=== PATIENT | female | born 1950 | race African-American/Black ===

== ENCOUNTER 2016-12-03 15:13 | Emergency (ER) | payer OTHER ==
[2016-12-03 15:34] VITALS: BMI 27.3
[2016-12-03] MEDS ORDERED: SODIUM CHLORIDE 1,000 ML IV STA (15:46)
[2016-12-03 16:17] LABS: BASOPHIL 0.2 % (0-2.0); EOSINOPHIL 0.1 % (0-4.5); MCH 29.8 pg (25.7-33.7); MEAN CELL VOLUME 90.4 fl (80-96); NEUTROPHILS 72.5 % (42.8-82.8); PLATELET COUNT 110 K/MM3 (134-434); WHITE BLOOD COUNT 6.3 K/mm3 (4.0-10.0)
[2016-12-03 16:30] LABS: INR 1.21 (0.82-1.09); PROTHROMBIN TIME (PATIENT) 13.4 SEC (9.98-11.88)
[2016-12-03 16:32] LABS: ACTIVATED PTT 31.2 SECONDS (26.9-34.4)
--- NOTE | 2016-12-03 16:32 | PDOC ---
History of Present Illness - General History Source: Long-Term Records Exam Limitations: Dementia <Lucina Gray - Last Filed: 12/03/16 18:27> <Maylin Stafford - Last Filed: 12/06/16 08:43> - General Chief Complaint: SIRS, Suspected/Possible Stated Complaint: FEVER Time Seen by Provider: 12/03/16 15:29 Past History - Past Medical History Dementia: Yes Dialysis: Yes (gerd) GI Disorders: Yes (constipation) Psychiatric Problems: Yes (schizophrenia, psychosis) Seizures: Yes (schiophrenia) - Immunization History Immunization Up to Date: No - Psycho/Social/Smoking Cessation Hx Anxiety: No Suicidal Ideation: No Smoking History: Unknown if ever smoked Have you smoked in the past 12 months: No Number of Cigarettes Smoked Daily: 20 Information on smoking cessation initiated: No 'Breaking Loose' booklet given: 07/31/14 Hx Alcohol Use: No Drug/Substance Use Hx: No Substance Use Type: None <Lucina Gray - Last Filed: 12/03/16 18:27> <Maylin Stafford - Last Filed: 12/06/16 08:43> - Past Medical History Allergies/Adverse Reactions: Allergies Allergy/AdvReac Type Severity Reaction Status Date / Time trazodone Allergy Mild Verified 12/03/16 15:26 strawberry Allergy Verified 12/03/16 15:26 Home Medications: Ambulatory Orders Acetaminophen [Tylenol] 650 mg PO QID 12/03/16 Benztropine Mesylate [Cogentin -] 0.5 mg PO BID 12/03/16 Divalproex *ER* [Depakote *ER* -] 500 mg PO BID 12/03/16 Hypromellose 0.5% Opth Soln [Artificial Tears] 1 drop BID 12/03/16 Ibuprofen [Motrin -] 400 mg PO TID 12/03/16 Magnesium Hydroxide [Milk of Magnesia] 30 ml PO DAILY PRN 12/03/16 Risperidone Microspheres [Risperdal Consta] 50 mg IM DAILY 12/03/16 Risperidone [Risperdal] 1 mg PO BID 12/03/16 Sennosides [Senna] 2 tab PO HS 12/03/16 Review of Systems - Review of Systems Able to Perform ROS?: No (2/2 dementia) <Lucina Gray - Last Filed: 12/03/16 18:27> *Physical Exam - Vital Signs Last Vital Signs Temp Pulse Resp BP Pulse Ox 101.9 F H 105 H 20 112/69 95 12/03/16 15:26 12/03/16 15:26 12/03/16 15:26 12/03/16 15:26 12/03/16 15:26 - Physical Exam General Appearance: Yes: Appropriately Dressed. No: Apparent Distress HEENT: positive: Normal Voice Neck: positive: Supple Respiratory/Chest: positive: Lungs Clear, Normal Breath Sounds. negative: Respiratory Distress Cardiovascular: positive: S1, S2, Tachycardia Gastrointestinal/Abdominal: positive: Soft. negative: Tender Musculoskeletal: negative: CVA Tenderness Extremity: positive: Normal Inspection Integumentary: positive: Dry, Warm, Other (no sacral bed sores) Neurologic: positive: Alert, Normal Mood/Affect <Lucina Gray - Last Filed: 12/03/16 18:27> - Vital Signs Last Vital Signs Temp Pulse Resp BP Pulse Ox 99.9 F H 85 20 116/80 100 12/03/16 18:05 12/03/16 20:12 12/03/16 20:12 12/03/16 20:12 12/03/16 20:12 <Maylin Stafford - Last Filed: 12/06/16 08:43> ED Treatment Course - LABORATORY CBC & Chemistry Diagram: 12/03/16 15:55 12/03/16 15:55 - ADDITIONAL ORDERS Additional order review: Laboratory Results 12/03/16 15:25 POC Glucometer 120.26191 12/03/16 12/03/16 15:55 15:25 RBC 4.28 MCV 90.4 MCHC 33.0 RDW 16.0 H MPV 11.0 D Neutrophils % 72.5 D Lymphocytes % 18.8 D Monocytes % 8.4 Eosinophils % 0.1 D Basophils % 0.2 POC Glucometer 120.33476 - RADIOLOGY Radiology Studies Ordered: Category Date Time Status CHEST X-RAY PORTABLE* [RAD] Stat Radiology 12/03/16 15:46 Completed <Lucina Gray - Last Filed: 12/03/16 18:27> - LABORATORY CBC & Chemistry Diagram: 12/03/16 15:55 12/03/16 15:55 - ADDITIONAL ORDERS Additional order review: 12/03/16 15:55 Blood Culture - Preliminary Blood - Peripheral Venous NO GROWTH OBTAINED AFTER 48 HOURS, INCUBATION TO CONTINUE FOR 3 DAYS. 12/03/16 15:55 Blood Culture - Preliminary Blood - Peripheral Venous NO GROWTH OBTAINED AFTER 48 HOURS, INCUBATION TO CONTINUE FOR 3 DAYS. 12/03/16 15:46 Urine Culture - Final Urine - Urine Hernandez NO GROWTH OBTAINED 12/03/16 12/03/16 15:55 15:25 RBC 4.28 MCV 90.4 MCHC 33.0 RDW 16.0 H MPV 11.0 D Neutrophils % 72.5 D Lymphocytes % 18.8 D Monocytes % 8.4 Eosinophils % 0.1 D Basophils % 0.2 POC Glucometer 120.66371 - Medications Given in the ED: ED Medications Discontinued Medications Generic Name Dose Route Start Last Admin Trade Name Freq PRN Reason Stop Dose Admin Acetaminophen 650 mg 12/03/16 17:05 12/03/16 17:15 Tylenol - PO 12/03/16 17:06 650 mg ONCE ONE Administration Sodium Chloride 1,000 mls @ 1,000 mls/hr 12/03/16 15:46 12/03/16 16:26 Normal Saline - IV 12/03/16 16:45 1,000 mls/hr ASDIR STA Administration <Maylin Stafford - Last Filed: 12/06/16 08:43> Medical Decision Making - Medical Decision Making 12/03/16 16:29 66-year-old female resident at [facility] with history of dementia, schizophrenia, seizure disorder, ventral hernia, COPD, pleural effusion status post thoracentesis, pneumonia, sepsis, sent from intermediate for fever of 103 F today. Patient unable to give much hx but states she feels well See exam R/o sepsis Source unclear at this time Low grade temp in ED w/ mild tachycardia Rest of exam unremarkable -tylenol -IVF -labs/molina-x/cxr -anticipate admission 12/03/16 17:07 12/03/16 17:39 12/03/16 18:27 Workup negative in ED. No obvious signs of infection at this time. Vitals improved w/ meds. Fever possibly viral in etiology. Will discharge back to intermediate w/ copy of labs 12/03/16 18:37 <Lucina Gray Last Filed: 12/03/16 18:27> *DC/Admit/Observation/Transfer <Lucina Gray - Last Filed: 12/03/16 18:27> - Attestations Physician Attestion: I reviewed the case with the mid-level practitioner and agree with the mid- level practitioner's assessment, diagnosis and disposition. <Maylin Stafford - Last Filed: 12/06/16 08:43> Diagnosis at time of Disposition: Fever Qualifiers: Fever type: unspecified Qualified Code(s): R50.9 - Fever, unspecified - Discharge Dispostion [facility] Condition at time of disposition: Improved - Patient Instructions Printed Discharge Instructions: DI for Fever (Symptom) -- Adult Additional Instructions: The source of your fever is unclear at this time as your labs including lactic acid, CBC, chemistry, urine and chest x-ray were all normal. It is possible that the source is viral. Maintain adequate hydration and take Tylenol or Motrin as needed for fever. Return to the ER for worsening of symptoms. Follow-up with your PMD
[2016-12-03 16:35] LABS: ANION GAP 8 (8-16); BILIRUBIN,TOTAL 0.4 mg/dL (0.2-1.0); CALCIUM 9.1 mg/dL (8.5-10.1); CO2 28 mmol/L (21-32); COCKROFT - GAULT 85.9945; CREATININE 0.7 mg/dL (0.55-1.02); GLUCOSE,RANDOM 99 mg/dL (74-106); SGOT/AST 19 U/L (15-37); SGPT/ALT 15 U/L (12-78); TOT PROT 6.7 g/dl (6.4-8.2)
[2016-12-03 16:36] LABS: ALK PHOS 43 U/L (45-117); TROPONIN I < 0.02 ng/ml (0.00-0.05)
[2016-12-03] MEDS ORDERED: ACETAMINOPHEN 325 MG TABLET (FP) PO ONE (17:05)
[2016-12-03] MEDS ORDERED: ACETAMINOPHEN 325 MG TABLET (FP) ONE (17:13)
[2016-12-03 18:05] VITALS: TEMP 99.9
[2016-12-03 18:11] LABS: URINE APPEARANCE CLEAR; URINE BILIRUBIN NEGATIVE (NEGATIVE); URINE BLOOD NEGATIVE (NEGATIVE); URINE COLOR LTYELLOW; URINE GLUCOSE (UA) NEGATIVE (NEGATIVE); URINE KETONE NEGATIVE (NEGATIVE); URINE LEUK ESTERASE NEGATIVE (NEGATIVE); URINE NITRITE NEGATIVE (NEGATIVE); URINE PROTEIN NEGATIVE (NEGATIVE); URINE UROBILINOGEN NEGATIVE E.U./dl (0.2-1.0)
[2016-12-03 18:35] LABS: VENOUS BLOOD GAS HCO3 27.5 meq/L (19-25); VENOUS PH 7.41 (7.32-7.42)
[2016-12-03 20:12] VITALS: BP 116/80; PULSE 85
--- NOTE | 2016-12-04 15:34 | EKG ---
Test Reason : Blood Pressure : / mmHG Vent. Rate : 088 BPM Atrial Rate : 088 BPM P-R Int : 150 ms QRS Dur : 066 ms QT Int : 364 ms P-R-T Axes : 075 -33 057 degrees QTc Int : 440 ms NORMAL SINUS RHYTHM POSSIBLE LEFT ATRIAL ENLARGEMENT LEFT AXIS DEVIATION POOR R WAVE PROGRESSION ABNORMAL ECG WHEN COMPARED WITH ECG OF 30-JUL-2014 23:13, QUESTIONABLE CHANGE IN INITIAL FORCES OF SEPTAL LEADS CLINICAL CORRELATION IS RECOMMENDED Confirmed by MERLINE MCFADDEN, SHERITA ([id number]) on 12/04/2016 3:33:30 PM Referred By: Confirmed By:SHERITA RICK MD
== END 2016-12-03 20:13 ==
LOC: JER 15:13
PROC: 3E0337Z Introduction of Electrolytic and Water Balance Substance into Peripheral Vein, Percutaneous Approach (ICD-10-PCS; principal; 2016-12-03)
DX: R50.9 Fever, unspecified (principal); F03.90 Unspecified dementia, unspecified severity, without behavioral disturbance, psychotic disturbance, mood disturbance, and anxiety; K21.9 Gastro-esophageal reflux disease without esophagitis; F20.9 Schizophrenia, unspecified; G40.909 Epilepsy, unspecified, not intractable, without status epilepticus; J44.9 Chronic obstructive pulmonary disease, unspecified
CPT/HCPCS: 36415; 71010-TC; 80053; 81003; 82550; 82803; 83605; 84484; 85025; 85610; 85730; 86850; 86900; 86901; 87040; 87086; 93005; 93010; 99284-25

== ENCOUNTER 2017-04-26 09:23 | Inpatient (IN) | payer OTHER ==
--- NOTE | 2017-04-26 09:33 | PDOC ---
History of Present Illness - General Chief Complaint: Nausea/Vomiting Stated Complaint: Nausea/Vomiting Time Seen by Provider: 04/26/17 09:27 - History of Present Illness Initial Comments: 04/26/17 09:33 Portions of history obtained from NIDHI Durham, @ [facility] and EMR Patient is a 66 y.o. female with a PMH of Dementia, Schizophrenia, Seizure Disoder, Ventral Hernia, COPD, Pleural Effusion, Breast CA (s/p lumpectomy) who presents to our ED via EMS from [facility] for a c/o of fever (101), tachycardia and a single episode of non-bloody emesis this a.m. On presentation patient repeatedly states "it hurts" but is unable to provide any further history. Past History - Past Medical History Allergies/Adverse Reactions: Allergies Allergy/AdvReac Type Severity Reaction Status Date / Time trazodone Allergy Mild Verified 04/26/17 09:32 chlorpromazine Allergy Verified 04/26/17 09:33 strawberry Allergy Verified 04/26/17 09:32 tomatoes Allergy Uncoded 04/26/17 09:33 Home Medications: Ambulatory Orders Acetaminophen [Tylenol] 650 mg PO QID 12/03/16 Benztropine Mesylate [Cogentin -] 0.5 mg PO BID 12/03/16 Divalproex *ER* [Depakote *ER* -] 500 mg PO BID 12/03/16 Hypromellose 0.5% Opth Soln [Artificial Tears] 1 drop BID 12/03/16 Ibuprofen [Motrin -] 200 mg PO TID 12/03/16 Magnesium Hydroxide [Milk of Magnesia] 30 ml PO DAILY PRN 12/03/16 Risperidone Microspheres [Risperdal Consta] 50 mg IM DAILY 12/03/16 Risperidone [Risperdal] 1 mg PO BID 12/03/16 Sennosides [Senna] 2 tab PO HS 12/03/16 Sodium Phosphate/Na Biphos [Fleet Adult Rectal Enema -] 118 ml RC PRN 04/26/17 Dementia: Yes Dialysis: Yes (gerd) GI Disorders: Yes (constipation) Psychiatric Problems: Yes (schizophrenia, psychosis) Seizures: Yes (schiophrenia) - Immunization History Immunization Up to Date: No - Suicide/Smoking/Psychosocial Hx Smoking History: Unknown if ever smoked Have you smoked in the past 12 months: No Number of Cigarettes Smoked Daily: 20 'Breaking Loose' booklet given: 07/31/14 Hx Alcohol Use: No Drug/Substance Use Hx: No Substance Use Type: None Review of Systems - Review of Systems Able to Perform ROS?: No *Physical Exam - Physical Exam General Appearance: Yes: Nourished HEENT: positive: LAURA Respiratory/Chest: positive: Lungs Clear Cardiovascular: positive: S1, S2 Gastrointestinal/Abdominal: positive: Normal Bowel Sounds, Soft, Hernia (40 cm circumferential, non-reducible ventral supraumbilical hernia) Extremity: positive: Normal Capillary Refill Neurologic: positive: Alert, Respond to painful stimul, Responsive, Confused. negative: Fully Oriented ED Treatment Course - LABORATORY CBC & Chemistry Diagram: 04/26/17 10:00 04/26/17 10:00 Medical Decision Making - Medical Decision Making 04/26/17 09:40 Patient is a 66 y.o. female who presents from [facility] following w / c/o of fever, tachycardia and 1 episode of non-bloody emesis. On PE patient is tachycardic, hypotensive (80's/60's @ presentation), and hypoxic (88% on 2 L NC) @ RR 24. SIRS 2/4 with suspected source as UTI as integumentary intact on PE. PLAN: 1. Sepsis work-up + 2L IV NS Planned disposition is likely admission 04/26/17 11:30 Lactic Acid 2.4 -- patient already recieving IV NS, will order repeat Lactic Acid in 2 hours; patient given Tylenol (1000 mg) @ [facility], additional 1000 mg IV administered + broad spectrum abx Vanc/Zoysn. Patient remains afebrile; wet read of CXR shows possible B/L pulmonary atelectasis changes + possible pleural effuson --> possible source of fever 04/26/17 12:13 Repeat VS - patient afebrile, resolved tachycardia and hypotension; repeat Lactic Acid 2.0; CXR report shows new R atelectasis; As patient now hemodynamically stable and afebrile patient admitted for further evaluation to inpatient medicine floor, Med/Surg as per Dr. Nilda Landon. *DC/Admit/Observation/Transfer Diagnosis at time of Disposition: Sepsis - Discharge Dispostion Condition at time of disposition: Fair Admit: Yes
[2017-04-26 09:46] VITALS: BMI 26.6
[2017-04-26] MEDS ORDERED: SODIUM CHLORIDE 0.9% 1000 ML INFUS.BAG IV ONE (10:14)
[2017-04-26 10:16] LABS: MCH 29.8 pg (25.7-33.7); MCHC 33.5 g/dl (32.0-36.0); MEAN CELL VOLUME 88.9 fl (80-96); MEAN PLT VOLUME 10.3 fl (7.5-11.1); PLATELET COUNT 106 K/MM3 (134-434); RDW 14.9 % (11.6-15.6); WHITE BLOOD COUNT 3.7 K/mm3 (4.0-10.0)
[2017-04-26] MEDS ORDERED: ACETAMINOPHEN INJECTION 100 ML IVPB ONE (10:31)
[2017-04-26] MEDS ORDERED: VANCOMYCIN 1,000 MG in DEXTROSE 5%-WATER - 250 ML IVPB ONE (10:35)
[2017-04-26] MEDS ORDERED: ACETAMINOPHEN 1000 MG/100 ML VIAL (NON FORMULARY) IVPB ONE (10:35)
[2017-04-26 10:36] LABS: URINE APPEARANCE CLEAR; URINE BILIRUBIN NEGATIVE (NEGATIVE); URINE BLOOD NEGATIVE (NEGATIVE); URINE COLOR DKYELLOW; URINE GLUCOSE (UA) NEGATIVE (NEGATIVE); URINE KETONE TRACE (NEGATIVE); URINE NITRITE NEGATIVE (NEGATIVE); URINE PROTEIN NEGATIVE (NEGATIVE)
[2017-04-26] MEDS ORDERED: PIPERACILLIN/TAZOB 4.5 GM/100 ML PREMIX BAG IVPB ONE (10:36)
[2017-04-26 10:37] LABS: INR 1.26 (0.82-1.09); PROTHROMBIN TIME (PATIENT) 14.2 SEC (9.98-11.88)
[2017-04-26 10:40] LABS: ACTIVATED PTT 29.8 SECONDS (26.9-34.4)
[2017-04-26 10:50] LABS: ALBUMIN 2.9 g/dl (3.4-5.0); ANION GAP 11 (8-16); BILIRUBIN,TOTAL 0.6 mg/dL (0.2-1.0); CO2 24 mmol/L (21-32); CREATININE 0.7 mg/dL (0.55-1.02); GLUCOSE,RANDOM 67 mg/dL (74-106); SGPT/ALT 17 U/L (12-78); TOT PROT 6.7 g/dl (6.4-8.2)
--- NOTE | 2017-04-26 10:51 | PDOC ---
Attending Attestation - Resident Resident Name: LeannaMarita - ED Attending Attestation I have performed the following: I have examined & evaluated the patient, The case was reviewed & discussed with the resident, I agree w/resident's findings & plan, Exceptions are as noted - HPI HPI: 04/26/17 10:47 66-year-old female from skilled nursing with nausea/vomiting/fever. Patient has COPD, not O2 dependent at baseline. - Physicial Exam PE: 04/26/17 10:48 Afebrile, tachycardia, relative hypoxia with O2 sat 87% on room air, improves to 96% on 2 L. Alert and moaning Airway patent Course breath sounds Large chronic ventral hernia which is soft, positive bowel sounds No focal neuro deficit - Critical Care Time Total Critical Care Time: 60 Critical Care Statement: The care of this patient involved high complexity decision making to prevent further life threatening deterioration of the patient 's condition and/or to evaluate & treat vital organ system(s) failure or risk of failure. - Medical Decision Making 04/26/17 10:50 66-year-old female from skilled nursing with sepsis, initially hypotensive but responded to fluids initially. Question source, possible pneumonia given her new O2 requirements. Sepsis protocol initiated Antipyretics, broad-spectrum antibiotics for healthcare associated infections IV fluid resuscitation Chest x-ray Admission, possible ICU. 04/26/17 11:41 Vitals improved after IVF boluses. lactate 2.2, UA clear. Will proceed with admission for severe sepsis.
--- NOTE | 2017-04-26 10:52 | EKG ---
Test Reason : Blood Pressure : / mmHG Vent. Rate : 110 BPM Atrial Rate : 110 BPM P-R Int : 140 ms QRS Dur : 062 ms QT Int : 336 ms P-R-T Axes : 074 -38 080 degrees QTc Int : 454 ms SINUS TACHYCARDIA POSSIBLE LEFT ATRIAL ENLARGEMENT LEFT AXIS DEVIATION SEPTAL INFARCT (CITED ON OR BEFORE 26-APR-2017) ABNORMAL ECG WHEN COMPARED WITH ECG OF 03-DEC-2016 16:40, QUESTIONABLE CHANGE IN INITIAL FORCES OF SEPTAL LEADS REPEAT INDICATED Confirmed by DIONISIO MALIN MD ([id number]) on 04/26/2017 10:52:32 AM Referred By: Confirmed By:DIONISIO MALIN MD
[2017-04-26 10:53] LABS: ALK PHOS 39 U/L (45-117); TROPONIN I < 0.02 ng/ml (0.00-0.05)
[2017-04-26 10:55] LABS: VENOUS BLOOD GAS HCO3 26.3 meq/L (19-25); VENOUS PH 7.4 (7.32-7.42)
[2017-04-26] MEDS ORDERED: VANCOMYCIN 1 GRAM (PRE-DOCKED) 250 ML IVPB ONE (10:55)
[2017-04-26 10:59] LABS: CPK 141 IU/L (26-192); SGOT/AST 28 U/L (15-37)
[2017-04-26] MEDS ORDERED: PIPERACILLIN/TAZOB 4.5 GM 100 ML IVPB ONE (11:42)
[2017-04-26 12:13] LABS: METAMYELOCYTE 3 % (0-2); PLATELET ESTIMATE DECREASED (NORMAL); TOTAL CELLS COUNTED 100
--- NOTE | 2017-04-26 13:32 | HP ---
Admitting History and Physical - Primary Care Physician PCP: Joceline Florence - Admission Chief Complaint: fever History of Present Illness: 66 yrs old female sent from [facility] for temp of 101F today, one episode of non bloody vomiting, hypoxic and hypotensive. History from [place] nurse-- pt unable to provide meaningful history- she has h/o Bipolar disorder and Schizophrenia- tells me she feels fine. Was eating a turkey sandwhich when I examined pt in ER today History Source: Medical Record Limitations to Obtaining History: Poor Historian - Past Medical History [employer]ARY [employer]EL[employer]ARE: Yes: Seizure, Other (Schizophrenia) Pulmonary: Yes: Pneumonia, Other (Pleural effusion) Psych: Yes: Schizophrenia - Smoking History Smoking history: Unknown if ever smoked Have you smoked in the past 12 months: No Aproximately how many cigarettes per day: 20 - Alcohol/Substance Use Hx Alcohol Use: No Home Medications - Allergies Allergies/Adverse Reactions: Allergies Allergy/AdvReac Type Severity Reaction Status Date / Time trazodone Allergy Mild Verified 04/26/17 09:32 chlorpromazine Allergy Verified 04/26/17 09:33 strawberry Allergy Verified 04/26/17 09:32 tomatoes Allergy Uncoded 04/26/17 09:33 - Home Medications Home Medications: Ambulatory Orders Acetaminophen [Tylenol] 650 mg PO QID 12/03/16 Benztropine Mesylate [Cogentin -] 0.5 mg PO BID 12/03/16 Divalproex *ER* [Depakote *ER* -] 500 mg PO BID 12/03/16 Hypromellose 0.5% Opth Soln [Artificial Tears] 1 drop BID 12/03/16 Ibuprofen [Motrin -] 200 mg PO TID 12/03/16 Magnesium Hydroxide [Milk of Magnesia] 30 ml PO DAILY PRN 12/03/16 Risperidone Microspheres [Risperdal Consta] 50 mg IM DAILY 12/03/16 Risperidone [Risperdal] 1 mg PO BID 12/03/16 Sennosides [Senna] 2 tab PO HS 12/03/16 Sodium Phosphate/Na Biphos [Fleet Adult Rectal Enema -] 118 ml RC PRN 04/26/17 Review of Systems - Review of Systems Constitutional: reports: Fever. denies: Chills, Lethargy, Loss of Appetite, Weakness Physical Examination Vital Signs: Vital Signs Temperature 100.6 F H 04/26/17 09:28 Pulse Rate 90 04/26/17 11:16 Respiratory Rate 18 04/26/17 11:16 Blood Pressure 117/72 04/26/17 11:16 O2 Sat by Pulse Oximetry (%) 100 04/26/17 11:16 Constitutional: Yes: No Distress, Calm Cardiovascular: Yes: Regular Rate and Rhythm Respiratory: Yes: Diminished Gastrointestinal: Yes: Normal Bowel Sounds, Soft, Hernia (large ventral hernia) . No: Tenderness Edema: No Psychiatric: Yes: Alert Labs: Laboratory Last Values WBC 3.7 K/mm3 (4.0-10.0) L D 04/26/17 10:00 RBC 4.55 M/mm3 (3.60-5.2) 04/26/17 10:00 Hgb 13.5 GM/dL (10.7-15.3) 04/26/17 10:00 Hct 40.4 % (32.4-45.2) 04/26/17 10:00 MCV 88.9 fl (80-96) 04/26/17 10:00 MCH 29.8 pg (25.7-33.7) 04/26/17 10:00 MCHC 33.5 g/dl (32.0-36.0) 04/26/17 10:00 RDW 14.9 % (11.6-15.6) 04/26/17 10:00 Plt Count 106 K/MM3 (134-434) L 04/26/17 10:00 MPV 10.3 fl (7.5-11.1) 04/26/17 10:00 Total Counted 100 04/26/17 10:00 Neutrophils % No Result Required. 04/26/17 10:00 Neutrophils % (Manual) 64 % (42.8-82.8) 04/26/17 10:00 Band Neuts % (Manual) 6 % (0-10) 04/26/17 10:00 Lymphocytes % No Result Required. 04/26/17 10:00 Lymphocytes % (Manual) 20 % (8-40) 04/26/17 10:00 Monocytes % (Manual) 7 % (3.8-10.2) 04/26/17 10:00 Platelet Estimate Decreased (NORMAL) 04/26/17 10:00 PT with INR 14.20 SEC (9.98-11.88) H 04/26/17 10:00 INR 1.26 (0.82-1.09) H 04/26/17 10:00 PTT (Actin FS) 29.8 SECONDS (26.9-34.4) 04/26/17 10:00 VBG pH 7.40 (7.32-7.42) 04/26/17 10:29 POC VBG pCO2 43.5 mmHg (38-52) 04/26/17 10:29 POC VBG pO2 42.8 mmHg (28-48) D 04/26/17 10:29 Mixed VBG HCO3 26.3 meq/L (19-25) H 04/26/17 10:29 Sodium 140 mmol/L (136-145) 04/26/17 10:00 Potassium 4.0 mmol/L (3.5-5.1) 04/26/17 10:00 Chloride 105 mmol/L (98-107) 04/26/17 10:00 Carbon Dioxide 24 mmol/L (21-32) 04/26/17 10:00 Anion Gap 11 (8-16) 04/26/17 10:00 BUN 16 mg/dL (7-18) D 04/26/17 10:00 Creatinine 0.7 mg/dL (0.55-1.02) 04/26/17 10:00 Creat Clearance w eGFR > 60 (>60) 04/26/17 10:00 Random Glucose 67 mg/dL (74-106) L D 04/26/17 10:00 Lactic Acid 2.0 mmol/L (0.4-2.0) 04/26/17 12:35 Calcium 9.0 mg/dL (8.5-10.1) 04/26/17 10:00 Total Bilirubin 0.6 mg/dL (0.2-1.0) D 04/26/17 10:00 AST 28 U/L (15-37) D 04/26/17 10:00 ALT 17 U/L (12-78) 04/26/17 10:00 Alkaline Phosphatase 39 U/L (45-117) L 04/26/17 10:00 Creatine Kinase 141 IU/L (26-192) 04/26/17 10:00 Troponin I < 0.02 ng/ml (0.00-0.05) 04/26/17 10:00 Total Protein 6.7 g/dl (6.4-8.2) 04/26/17 10:00 Albumin 2.9 g/dl (3.4-5.0) L 04/26/17 10:00 Urine Color Dkyellow 04/26/17 10:20 Urine Appearance Clear 04/26/17 10:20 Urine pH 6.0 (5.0-8.0) D 04/26/17 10:20 Ur Specific [place]phi 1.018 (1.001-1.035) 04/26/17 10:20 Urine Protein Negative (NEGATIVE) 04/26/17 10:20 Urine Glucose (UA) Negative (NEGATIVE) 04/26/17 10:20 Urine Ketones Trace (NEGATIVE) H 04/26/17 10:20 Urine Blood Negative (NEGATIVE) 04/26/17 10:20 Urine Nitrite Negative (NEGATIVE) 04/26/17 10:20 Urine Bilirubin Negative (NEGATIVE) 04/26/17 10:20 Urine Urobilinogen 2.0 mg/dL (0.2-1.0) H 04/26/17 10:20 Ur Leukocyte Esterase Negative (NEGATIVE) 04/26/17 10:20 Blood Type A POSITIVE 04/26/17 10:29 Antibody Screen Negative 04/26/17 10:29 Imaging - Results Chest X-ray: Image Reviewed EKG: Image Reviewed (sinus tachycardia) Problem List - Problems (1) Sepsis Code(s): A41.9 - SEPSIS, UNSPECIFIED ORGANISM (2) Fever Code(s): R50.9 - FEVER, UNSPECIFIED Qualifiers: Fever type: unspecified Qualified Code(s): R50.9 - Fever, unspecified; R50.9 - Fever, unspecified (3) Pneumonia Code(s): J18.9 - PNEUMONIA, UNSPECIFIED ORGANISM Assessment/Plan PLAN IV antibiotics ID eval-- spoke with ID continue with meds DVT prophylaxis-- Lovenox sc iv fluids check urine antigens
[2017-04-26] MEDS: SODIUM CHLORIDE 0.45% 1,000 ML IV SCH (13:50)
--- NOTE | 2017-04-26 14:15 | CONSULT ---
Consultation: REQUESTING PROVIDER: Jocelynn Christine CONSULT REQUEST: We have been asked to medically evaluate this patient for ( specify). HISTORY OF PRESENT ILLNESS: Patiet is a poor historia , information was obtained from medical records and ED notes Patient is a 66 y.o. female with a PMH of Dementia, Schizophrenia, Seizure Disoder, Ventral Hernia, COPD, Pleural Effusion, Breast CA (s/p lumpectomy) who presents to our ED via EMS from [facility] for a c/o of fever (101), tachycardia and a single episode of non-bloody emesis this a.m. On presentation patient repeatedly states "it hurts" but is unable to provide any further history. REVIEW OF SYSTEMS: Unable to obtained PHYSICAL EXAMINATION Vital Signs - 24 hr 04/26/17 14:12 Temperature 98.6 F Pulse Rate [ 88 Apical] Respiratory 18 Rate Blood Pressure 107/59 [Left Arm] GENERAL:drowsy and lethargic, A&O X1 . HEAD: Normal with no signs of trauma. EYES: sclera anicteric, conjunctiva clear. EARS, NOSE, THROAT: dry mucous membranes. LUNGS: diminished breath sounds, No wheezes, and no crackles. No accessory muscle use. HEART: Regular rate and rhythm, normal S1 and S2 without murmur, rub or gallop. ABDOMEN: Soft, nontender, not distended, normoactive bowel sounds, big hernia 22cm LOWER EXTREMITIES: warm, well-perfused. No calf tenderness. No peripheral edema. NEUROLOGICAL: no focal deficit, lethargic and confused PSYCHIATRIC: un Appropriate mood and affect. SKIN: Warm, dry, normal turgor, no rashes or lesions noted. Laboratory Results - last 24 hr 04/26/17 12:35 Lactic Acid 2.0 Active Medications Generic Name Dose Route Start Last Admin Trade Name Freq PRN Reason Stop Dose Admin Acetaminophen 650 mg 04/26/17 14:00 Tylenol - PO QID BENITO Benztropine Mesylate 0.5 mg 04/26/17 22:00 Cogentin - PO BID BENITO Cefepime HCl 1 gm 04/26/17 18:00 Maxipime 1 Gm Premix Ivpb IVPB Q8H-IV BENITO Divalproex Sodium 500 mg 04/26/17 22:00 Depakote *Er* - PO BID BENITO Sodium Chloride 1,000 mls @ 100 mls/hr 04/26/17 13:45 04/26/17 13:50 1/2 Normal Saline IV 100 mls/hr ASDIR BENITO Administration Non-Formulary Medication 1 drop 04/26/17 22:00 Hypromellose 0.5% Opth Soln [Artificial Tears] OU BID BENITO Risperidone 1 mg 04/26/17 22:00 Risperdal - PO BID BNEITO Senna 2 tab 04/26/17 22:00 Senna - PO HS BENITO ASSESSMENT/PLAN: Patient is a 66 y.o. female with a PMH of Dementia, Schizophrenia, Seizure Disoder, Ventral Hernia, COPD, Pleural Effusion, Breast CA (s/p lumpectomy) who presents to our ED via EMS from [facility] for a c/o of fever (101), tachycardia and a single episode of non-bloody emesis this a.m. she was found to be septic and admitted for further evaluation and treatment . # sepsis most likely 2/2 pneumonia * febrile, tachycardic, * iv fluids * f/u blood cx , urine cx * Urine legionella ag * vanco, zosyn , cefipime given in ED * will continue cefipime 1gm daily tomorrow after we recieved the cx result. * Dispo: We will continue to follow the patient. Thank you for this consultative opportunity.
--- NOTE | 2017-04-26 15:00 | PN ---
Teaching Attending Note Name of Resident: Cristian Mendez ATTENDING PHYSICIAN STATEMENT I saw and evaluated the patient. I reviewed the resident's note and discussed the case with the resident. I agree with the resident's findings and plan as documented. SUBJECTIVE: sent from [place] this am with fever of 101, one episode vomiting found to have a RML infiltrate and lactic acidosis started on IVF and fluids now no complaints, resting comfortably OBJECTIVE: Vital Signs Period Temp Pulse Resp BP Sys/Seals Pulse Ox Last 24 Hr 98.6 F-100.6 F 88-120 18-20 81-117/59-72 87-100 cor-rrr lungs decreased bs at bases abd +soft, NT ventral hernia ext no edema CBC, BMP 04/26/17 10:00 04/26/17 10:00 cultures pending cxray- rml infiltrate ASSESSMENT AND PLAN: RML pneumonia- HCAP received vanco/zosyn this am plan for cefepime legionella urinary antigen f/u cultures Problem List - Problems (1) Fever Code(s): R50.9 - FEVER, UNSPECIFIED Qualifiers: Fever type: unspecified Qualified Code(s): R50.9 - Fever, unspecified; R50.9 - Fever, unspecified (2) Pneumonia Code(s): J18.9 - PNEUMONIA, UNSPECIFIED ORGANISM
[2017-04-26] MEDS: ACETAMINOPHEN 325 MG TABLET (FP) PO SCH ×2 (15:36→22:07)
[2017-04-26] MEDS ORDERED: CEFEPIME 100 ML IVPB ONE (16:13)
[2017-04-26 16:35] LABS: URINE LEUK ESTERASE Negative (NEGATIVE)
[2017-04-26] MEDS ORDERED: CEFEPIME HCL/D5W 1 GM/50 ML PREMIX BAG IVPB SCH (18:00)
[2017-04-26] MEDS ORDERED: CEFEPIME HCL 1 GM VIAL (RESTRICTED TO ID) IVPB SCH (18:00)
[2017-04-26] MEDS: CEFEPIME 1 GM in DEXTROSE 5%-WATER - 100 ML IVPB SCH (18:25)
[2017-04-26] MEDS ORDERED: PATIENT'S OWN MEDICATION (NON-FORMULARY) (Hypromellose 0.5% Opth Soln [Artificial Tears] 1 OU SCH (22:00)
[2017-04-26] MEDS ORDERED: PT OWN MED DRAWER 7, Y5N ONE (22:30)
[2017-04-26] MEDS: ARTIFICIAL TEARS (POLYVINYL ALCOHOL 1.4%) OPTH DROPS OU SCH (23:36)
[2017-04-26] MEDS: DIVALPROEX NA *ER* EXTEND REL 500 MG TABLET.SA (FP) PO SCH (23:37)
[2017-04-26] MEDS: BENZTROPINE MESYLATE 0.5 MG TABLET (FP) PO SCH (23:37)
[2017-04-26] MEDS: risperiDONE 1 MG TABLET (FP) PO SCH (23:37)
[2017-04-26] MEDS: SENNOSIDES 8.6MG TABLET (FP) PO SCH (23:37)
[2017-04-27] MEDS: CEFEPIME 1 GM in DEXTROSE 5%-WATER - 100 ML IVPB SCH ×3 (01:08→17:36)
[2017-04-27] MEDS: ACETAMINOPHEN 325 MG TABLET (FP) PO PRN ×3 (01:09→17:35)
[2017-04-27] MEDS: SODIUM CHLORIDE 0.45% 1,000 ML IV SCH ×2 (03:33→14:02)
[2017-04-27] MEDS ORDERED: PT OWN MED DRAWER 7, Y5N ONE (09:45)
[2017-04-27] MEDS: ENOXAPARIN NA (PORCINE) 40 MG/0.4 ML DISP.SYRIN SQ SCH (09:52)
[2017-04-27] MEDS: ARTIFICIAL TEARS (POLYVINYL ALCOHOL 1.4%) OPTH DROPS OU SCH ×2 (09:52→22:17)
[2017-04-27] MEDS: DIVALPROEX NA *ER* EXTEND REL 500 MG TABLET.SA (FP) PO SCH ×2 (09:53→22:17)
[2017-04-27] MEDS: BENZTROPINE MESYLATE 0.5 MG TABLET (FP) PO SCH ×2 (09:53→22:17)
[2017-04-27] MEDS: risperiDONE 1 MG TABLET (FP) PO SCH ×2 (09:54→22:17)
--- NOTE | 2017-04-27 12:31 | PN ---
Progress Note, Physician Chief Complaint: 3 watery bm so far per nurse, foul smelling no abdominal pain - Current Medication List Current Medications: Active Medications Acetaminophen (Tylenol -) 650 mg PO Q6H PRN PRN Reason: PAIN/FEVER Last Admin: 04/27/17 06:54 Dose: 650 mg Artificial Tears (Artificial Tears) 1 drop OU BID [facility] Last Admin: 04/27/17 09:52 Dose: 1 drop Benztropine Mesylate (Cogentin -) 0.5 mg PO BID [facility] Last Admin: 04/27/17 09:53 Dose: 0.5 mg Divalproex Sodium (Depakote *Er* -) 500 mg PO BID [facility] Last Admin: 04/27/17 09:53 Dose: 500 mg Enoxaparin Sodium (Lovenox -) 40 mg SQ DAILY [facility] Last Admin: 04/27/17 09:52 Dose: 40 mg Sodium Chloride (1/2 Normal Saline) 1,000 mls @ 100 mls/hr IV ASDIR [facility] Last Admin: 04/27/17 03:33 Dose: 100 mls/hr Cefepime HCl 1 gm/ Dextrose 100 mls @ 200 mls/hr IVPB Q8H-IV [facility] Last Admin: 04/27/17 09:52 Dose: 200 mls/hr Metronidazole (Flagyl -) 500 mg PO TID [facility] Risperidone (Risperdal -) 1 mg PO BID [facility] Last Admin: 04/27/17 09:54 Dose: 1 mg Senna (Senna -) 2 tab PO HS [facility] Last Admin: 04/26/17 23:37 Dose: 2 tab - Objective Vital Signs: Vital Signs Temperature 100.6 F H 04/27/17 05:30 Pulse Rate 94 H 04/27/17 05:30 Respiratory Rate 20 04/27/17 05:30 Blood Pressure 136/57 04/27/17 05:30 O2 Sat by Pulse Oximetry (%) 98 04/26/17 21:00 Constitutional: Yes: No Distress Cardiovascular: Yes: Regular Rate and Rhythm Respiratory: Yes: Diminished Gastrointestinal: Yes: Normal Bowel Sounds, Soft, Hernia. No: Tenderness Edema: No Labs: INR, PTT INR 1.26 (0.82-1.09) H 04/26/17 10:00 Problem List - Problems (1) Sepsis Code(s): A41.9 - SEPSIS, UNSPECIFIED ORGANISM (2) Fever Code(s): R50.9 - FEVER, UNSPECIFIED Qualifiers: Fever type: unspecified Qualified Code(s): R50.9 - Fever, unspecified; R50.9 - Fever, unspecified (3) Pneumonia Code(s): J18.9 - PNEUMONIA, UNSPECIFIED ORGANISM Assessment/Plan PLAN IV antibiotics ID eval-- noted check Cdiff start Flagyl continue with meds DVT prophylaxis-- Lovenox sc iv fluids check urine antigens
--- NOTE | 2017-04-27 13:20 | PN ---
Physical Exam: SUBJECTIVE: Patient seen and examinedat bedside.still febrile and tachycardic. she responds to her name. mental status on her base line. OBJECTIVE: Vital Signs Period Temp Pulse Resp BP Sys/Seals Pulse Ox Last 24 Hr 98.0 F-100.8 F 86-97 18-20 103-136/57-66 95-98 GENERAL:drowsy and lethargic, A&O X1 . HEAD: Normal with no signs of trauma. EYES: sclera anicteric, conjunctiva clear. EARS, NOSE, THROAT: dry mucous membranes. LUNGS: diminished breath sounds, No wheezes, and no crackles. No accessory muscle use. HEART: Regular rate and rhythm, normal S1 and S2 without murmur, rub or gallop. ABDOMEN: Soft, nontender, not distended, normoactive bowel sounds, big abdominal hernia 22cm LOWER EXTREMITIES: warm, well-perfused. No calf tenderness. No peripheral edema. NEUROLOGICAL: no focal deficit, lethargic and confused PSYCHIATRIC: un Appropriate mood and affect. SKIN: Warm, dry, no rashes or lesions noted. Active Medications Generic Name Dose Route Start Last Admin Trade Name Freq PRN Reason Stop Dose Admin Acetaminophen 650 mg 04/26/17 20:11 04/27/17 06:54 Tylenol - PO 650 mg Q6H PRN Administration PAIN/FEVER Artificial Tears 1 drop 04/26/17 22:00 04/27/17 09:52 Artificial Tears OU 1 drop BID [facility] Administration Benztropine Mesylate 0.5 mg 04/26/17 22:00 04/27/17 09:53 Cogentin - PO 0.5 mg BID [facility] Administration Divalproex Sodium 500 mg 04/26/17 22:00 04/27/17 09:53 Depakote *Er* - PO 500 mg BID [facility] Administration Enoxaparin Sodium 40 mg 04/27/17 10:00 04/27/17 09:52 Lovenox - SQ 40 mg DAILY [facility] Administration Sodium Chloride 1,000 mls @ 100 mls/hr 04/26/17 13:45 04/27/17 03:33 1/2 Normal Saline IV 100 mls/hr ASDIR [facility] Administration Cefepime HCl 1 gm/ Dextrose 100 mls @ 200 mls/hr 04/26/17 18:00 04/27/17 09:52 IVPB 200 mls/hr Q8H-IV [facility] Administration Metronidazole 500 mg 04/27/17 14:00 Flagyl - PO TID [facility] Risperidone 1 mg 04/26/17 22:00 04/27/17 09:54 Risperdal - PO 1 mg BID [facility] Administration Senna 2 tab 04/26/17 22:00 04/26/17 23:37 Senna - PO 2 tab HS [facility] Administration ASSESSMENT/PLAN: Patient is a 66 y.o. female with a PMH of Dementia, Schizophrenia, Seizure Disoder, Ventral Hernia, COPD, Pleural Effusion, Breast CA (s/p lumpectomy) who presents to our ED via EMS from [facility] for a c/o of fever (101), tachycardia and a single episode of non-bloody emesis this a.m. she was found to be septic and admitted for further evaluation and treatment . # sepsis most likely 2/2 pneumonia * febrile, tachycardia, * iv fluids * f/u blood cx no growth , urine cx no growth * Urine legionella ag was not send yesterday, contacted the lab it will be collected today. * vanco, zosyn , cefipime given in ED * continue cefipime 1gm daily IVBP Q8 hr , and metronidazol 500 Po TID * Cdiff screening was sent today
[2017-04-27] MEDS: metroNIDAZOLE 250 MG TABLET PO SCH ×2 (14:02→22:17)
--- NOTE | 2017-04-27 14:38 | PN ---
Teaching Attending Note Name of Resident: Cristian Mendez ATTENDING PHYSICIAN STATEMENT I saw and evaluated the patient. I reviewed the resident's note and discussed the case with the resident. I agree with the resident's findings and plan as documented. SUBJECTIVE: alert no complaints diarrhea earlier OBJECTIVE: Vital Signs Period Temp Pulse Resp BP Sys/Seals Pulse Ox Last 24 Hr 98.0 F-100.8 F 86-97 18-20 103-136/57-66 95-98 cor-rrr lungs decreased bs at bases abd soft,+hernia ext no edema CBC, BMP 04/26/17 10:00 04/26/17 10:00 Microbiology 04/26/17 10:20 Urine For Antigen Detection Legionella Antigen - Final 04/26/17 10:20 Urine For Antigen Detection Streptococcus pneumoniae Antigen (M - Final 04/26/17 10:29 Urine - Urine Clean Catch Urine Culture - Final NO GROWTH OBTAINED 04/26/17 10:29 Blood - Peripheral Venous Blood Culture - Preliminary NO GROWTH OBTAINED AFTER 24 HOURS, INCUBATION TO CONTINUE FOR 4 DAYS. 04/26/17 10:29 Blood - Peripheral Venous Blood Culture - Preliminary NO GROWTH OBTAINED AFTER 24 HOURS, INCUBATION TO CONTINUE FOR 4 DAYS. ASSESSMENT AND PLAN: probable pneumonia- continue cefepime diarrhea- stool cdiff pending, now on flagyl Problem List - Problems (1) Fever Code(s): R50.9 - FEVER, UNSPECIFIED Qualifiers: Fever type: unspecified Qualified Code(s): R50.9 - Fever, unspecified; R50.9 - Fever, unspecified (2) Pneumonia Code(s): J18.9 - PNEUMONIA, UNSPECIFIED ORGANISM
[2017-04-27] MEDS: SENNOSIDES 8.6MG TABLET (FP) PO SCH (22:18)
[2017-04-28] MEDS: SODIUM CHLORIDE 0.45% 1,000 ML IV SCH ×2 (01:00→14:19)
[2017-04-28] MEDS: CEFEPIME 1 GM in DEXTROSE 5%-WATER - 100 ML IVPB SCH ×2 (02:44→10:51)
[2017-04-28] MEDS: metroNIDAZOLE 250 MG TABLET PO SCH ×2 (06:28→13:26)
[2017-04-28] MEDS: ACETAMINOPHEN 325 MG TABLET (FP) PO PRN ×3 (06:30→23:18)
--- NOTE | 2017-04-28 08:36 | PN ---
Physical Exam: SUBJECTIVE: Patient seen and examined at bedside. she is still febrile and tachycardic. she denies any chest pain, sob, palpitation ,she is feeling better in general. mental status on her baseline. OBJECTIVE: Vital Signs Period Temp Pulse Resp BP Sys/Seals Pulse Ox Last 24 Hr 98.7 F-101.3 F 84-101 20-20 113-151/55-82 96-98 GENERAL:drowsy and lethargic, A&O X1 . with HEAD: Normal with no signs of trauma. EYES: sclera anicteric, conjunctiva clear. EARS, NOSE, THROAT: dry mucous membranes. LUNGS: diminished breath sounds, No wheezes, and no crackles. No accessory muscle use. HEART: Regular rate and rhythm, normal S1 and S2 without murmur, rub or gallop. ABDOMEN: Soft, nontender, not distended, normoactive bowel sounds, big abdominal hernia 22cm LOWER EXTREMITIES: warm, well-perfused. No calf tenderness. No peripheral edema. NEUROLOGICAL: no focal deficit, lethargic and confused PSYCHIATRIC: in a good spirit today. SKIN: Warm, dry, no rashes or lesions noted. Active Medications Generic Name Dose Route Start Last Admin Trade Name Freq PRN Reason Stop Dose Admin Acetaminophen 650 mg 04/26/17 20:11 04/28/17 06:30 Tylenol - PO 650 mg Q6H PRN Administration PAIN/FEVER Artificial Tears 1 drop 04/26/17 22:00 04/27/17 22:17 Artificial Tears OU 1 drop BID [facility] Administration Benztropine Mesylate 0.5 mg 04/26/17 22:00 04/27/17 22:17 Cogentin - PO 0.5 mg BID [facility] Administration Divalproex Sodium 500 mg 04/26/17 22:00 04/27/17 22:17 Depakote *Er* - PO 500 mg BID [facility] Administration Enoxaparin Sodium 40 mg 04/27/17 10:00 04/27/17 09:52 Lovenox - SQ 40 mg DAILY [facility] Administration Sodium Chloride 1,000 mls @ 100 mls/hr 04/26/17 13:45 04/28/17 01:00 1/2 Normal Saline IV 100 mls/hr ASDIR [facility] Administration Cefepime HCl 1 gm/ Dextrose 100 mls @ 200 mls/hr 04/26/17 18:00 04/28/17 02:44 IVPB 200 mls/hr Q8H-IV [facility] Administration Metronidazole 500 mg 04/27/17 14:00 04/28/17 06:28 Flagyl - PO 500 mg TID [facility] Administration Risperidone 1 mg 04/26/17 22:00 04/27/17 22:17 Risperdal - PO 1 mg BID [facility] Administration Senna 2 tab 04/26/17 22:00 04/27/17 22:18 Senna - PO Not Given HS [facility] Microbiology 04/26/17 10:20 Urine For Antigen Detection Legionella Antigen - Final 04/26/17 10:20 Urine For Antigen Detection Streptococcus pneumoniae Antigen (M - Final 04/26/17 10:29 Urine - Urine Clean Catch Urine Culture - Final NO GROWTH OBTAINED 04/26/17 10:29 Blood - Peripheral Venous Blood Culture - Preliminary NO GROWTH OBTAINED AFTER 24 HOURS, INCUBATION TO CONTINUE FOR 4 DAYS. 04/26/17 10:29 Blood - Peripheral Venous Blood Culture - Preliminary NO GROWTH OBTAINED AFTER 24 HOURS, INCUBATION TO CONTINUE FOR 4 DAYS. CXR: 04/26/2017 : Medial right lob infiltrate ASSESSMENT/PLAN: Patient is a 66 y.o. female with a PMH of Dementia, Schizophrenia, Seizure Disoder, Ventral Hernia, COPD, Pleural Effusion, Breast CA (s/p lumpectomy) who presents to our ED via EMS from [facility] for a c/o of fever (101), tachycardia and a single episode of non-bloody emesis this a.m. she was found to be septic and admitted for further evaluation and treatment . # sepsis most likely 2/2 pneumonia * febrile, tachycardia, * iv fluids * f/u blood cx no growth , urine cx no growth * Urine legionella ag negative * vanco, zosyn , cefepime given in ED * switch cefepime 1gm daily IVBP Q8 hr to ceftriaxone 1 gm daily IVBP , and Azithromycin 500 ivbp daily * DC metronidazole 500 Po TID * C.diff screening negative
[2017-04-28 09:00] LABS: ALBUMIN 2.2 g/dl (3.4-5.0); ANION GAP 9 (8-16); CALCIUM 8.7 mg/dL (8.5-10.1); CO2 28 mmol/L (21-32); CREATININE 0.7 mg/dL (0.55-1.02); GLUCOSE,RANDOM 76 mg/dL (74-106); SGOT/AST 14 U/L (15-37); SGPT/ALT 14 U/L (12-78)
[2017-04-28 09:01] LABS: ALK PHOS 38 U/L (45-117); BILIRUBIN,TOTAL 0.6 mg/dL (0.2-1.0); TOT PROT 6.1 g/dl (6.4-8.2)
[2017-04-28] MEDS ORDERED: PT OWN MED DRAWER 7, Y5N ONE ×2 (09:35→10:48)
[2017-04-28 09:43] LABS: BASOPHIL 0.5 % (0-2.0); EOSINOPHIL 0.5 % (0-4.5); MCH 29.8 pg (25.7-33.7); MCHC 33.8 g/dl (32.0-36.0); MEAN CELL VOLUME 88.3 fl (80-96); MEAN PLT VOLUME 9.9 fl (7.5-11.1); NEUTROPHILS 83.1 % (42.8-82.8); PLATELET COUNT 90 K/MM3 (134-434); RDW 14.2 % (11.6-15.6); WHITE BLOOD COUNT 7.2 K/mm3 (4.0-10.0)
[2017-04-28] MEDS: BENZTROPINE MESYLATE 0.5 MG TABLET (FP) PO SCH ×2 (09:58→23:17)
[2017-04-28] MEDS: DIVALPROEX NA *ER* EXTEND REL 500 MG TABLET.SA (FP) PO SCH ×2 (09:58→23:17)
[2017-04-28] MEDS: ARTIFICIAL TEARS (POLYVINYL ALCOHOL 1.4%) OPTH DROPS OU SCH ×2 (09:59→22:07)
[2017-04-28] MEDS: ENOXAPARIN NA (PORCINE) 40 MG/0.4 ML DISP.SYRIN SQ SCH (09:59)
[2017-04-28] MEDS: risperiDONE 1 MG TABLET (FP) PO SCH ×2 (09:59→23:17)
--- NOTE | 2017-04-28 12:57 | PN ---
Progress Note, Physician Chief Complaint: no diarrhea no coughing febrile this AM awake and alert - Current Medication List Current Medications: Active Medications Acetaminophen (Tylenol -) 650 mg PO Q6H PRN PRN Reason: PAIN/FEVER Last Admin: 04/28/17 06:30 Dose: 650 mg Artificial Tears (Artificial Tears) 1 drop OU BID [facility] Last Admin: 04/28/17 09:59 Dose: 1 drop Benztropine Mesylate (Cogentin -) 0.5 mg PO BID [facility] Last Admin: 04/28/17 09:58 Dose: 0.5 mg Divalproex Sodium (Depakote *Er* -) 500 mg PO BID [facility] Last Admin: 04/28/17 09:58 Dose: 500 mg Enoxaparin Sodium (Lovenox -) 40 mg SQ DAILY [facility] Last Admin: 04/28/17 09:59 Dose: 40 mg Cefepime HCl 1 gm/ Dextrose 100 mls @ 200 mls/hr IVPB Q8H-IV [facility] Last Admin: 04/28/17 10:51 Dose: 200 mls/hr Sodium Chloride (1/2 Normal Saline) 1,000 mls @ 83 mls/hr IV ASDIR [facility] Metronidazole (Flagyl -) 500 mg PO TID [facility] Last Admin: 04/28/17 06:28 Dose: 500 mg Potassium Chloride (K-Dur -) 20 meq PO ONCE ONE Stop: 04/28/17 12:57 Risperidone (Risperdal -) 1 mg PO BID [facility] Last Admin: 04/28/17 09:59 Dose: 1 mg Senna (Senna -) 2 tab PO HS [facility] Last Admin: 04/27/17 22:18 Dose: Not Given - Objective Vital Signs: Vital Signs Temperature 99.7 F H 04/28/17 09:59 Pulse Rate 98 H 04/28/17 09:59 Respiratory Rate 20 04/28/17 09:59 Blood Pressure 128/65 04/28/17 09:59 O2 Sat by Pulse Oximetry (%) 96 04/27/17 21:00 Constitutional: Yes: No Distress Cardiovascular: Yes: Regular Rate and Rhythm Respiratory: Yes: Diminished. No: Rales, Rhonchi Gastrointestinal: Yes: Normal Bowel Sounds, Soft, Hernia. No: Tenderness Edema: No Psychiatric: Yes: Alert Labs: CBC, BMP 04/28/17 09:20 04/28/17 07:00 INR, PTT INR 1.26 (0.82-1.09) H 04/26/17 10:00 Problem List - Problems (1) Sepsis Code(s): A41.9 - SEPSIS, UNSPECIFIED ORGANISM (2) Fever Code(s): R50.9 - FEVER, UNSPECIFIED Qualifiers: Fever type: unspecified Qualified Code(s): R50.9 - Fever, unspecified; R50.9 - Fever, unspecified (3) Pneumonia Code(s): J18.9 - PNEUMONIA, UNSPECIFIED ORGANISM Assessment/Plan PLAN IV antibiotics ID eval-- noted Cdiff- negative check influenza screen urine antigens negative continue with meds DVT prophylaxis-- Lovenox sc iv fluids replace potassium
--- NOTE | 2017-04-28 13:35 | PN ---
Progress Note, Physician Chief Complaint: ID Febrile 101 today despite antibiotics Cefepime and metronidazole day 2 - Current Medication List Current Medications: Active Medications Acetaminophen (Tylenol -) 650 mg PO Q6H PRN PRN Reason: PAIN/FEVER Last Admin: 04/28/17 06:30 Dose: 650 mg Artificial Tears (Artificial Tears) 1 drop OU BID [facility] Last Admin: 04/28/17 09:59 Dose: 1 drop Benztropine Mesylate (Cogentin -) 0.5 mg PO BID [facility] Last Admin: 04/28/17 09:58 Dose: 0.5 mg Divalproex Sodium (Depakote *Er* -) 500 mg PO BID [facility] Last Admin: 04/28/17 09:58 Dose: 500 mg Enoxaparin Sodium (Lovenox -) 40 mg SQ DAILY [facility] Last Admin: 04/28/17 09:59 Dose: 40 mg Cefepime HCl 1 gm/ Dextrose 100 mls @ 200 mls/hr IVPB Q8H-IV [facility] Last Admin: 04/28/17 10:51 Dose: 200 mls/hr Sodium Chloride (1/2 Normal Saline) 1,000 mls @ 83 mls/hr IV ASDIR [facility] Metronidazole (Flagyl -) 500 mg PO TID [facility] Last Admin: 04/28/17 13:26 Dose: 500 mg Potassium Chloride (K-Dur -) 20 meq PO ONCE ONE Stop: 04/28/17 12:57 Risperidone (Risperdal -) 1 mg PO BID [facility] Last Admin: 04/28/17 09:59 Dose: 1 mg Senna (Senna -) 2 tab PO HS [facility] Last Admin: 04/27/17 22:18 Dose: Not Given - Objective Vital Signs: Vital Signs Temperature 99.7 F H 04/28/17 09:59 Pulse Rate 98 H 04/28/17 09:59 Respiratory Rate 20 04/28/17 09:59 Blood Pressure 128/65 04/28/17 09:59 O2 Sat by Pulse Oximetry (%) 96 04/27/17 21:00 Constitutional: Yes: Well Nourished, No Distress HENT: Yes: WNL, Atraumatic Cardiovascular: Yes: Regular Rate and Rhythm, S1, S2 Respiratory: Yes: WNL, Regular, CTA Bilaterally Gastrointestinal: Yes: WNL, Normal Bowel Sounds, Soft. No: Tenderness, Tenderness, Epigastrium Labs: CBC, BMP 04/28/17 09:20 04/28/17 07:00 INR, PTT INR 1.26 (0.82-1.09) H 04/26/17 10:00 Assessment/Plan Microbiology 04/27/17 12:42 Stool Clostridium difficile Antigen (BRENDA) - Final 04/27/17 12:42 Stool Clostridium difficile Toxin Assay - Final 04/26/17 10:29 Urine - Urine Clean Catch Urine Culture - Final NO GROWTH OBTAINED 04/26/17 10:29 Blood - Peripheral Venous Blood Culture - Preliminary NO GROWTH OBTAINED AFTER 48 HOURS, INCUBATION TO CONTINUE FOR 3 DAYS. 04/26/17 10:29 Blood - Peripheral Venous Blood Culture - Preliminary NO GROWTH OBTAINED AFTER 48 HOURS, INCUBATION TO CONTINUE FOR 3 DAYS. Laboratory Tests 04/26/17 04/28/17 04/28/17 10:20 07:00 09:20 WBC 7.2 D RBC 3.53 L D Hgb 10.5 L D Plt Count 90 L BUN 7 D Creatinine 0.7 Ur Leukocyte Esterase Negative Assessment Fever ? PNA culture neg. In view of persistant temp will switch her therapy to Ceftriaxone and Azithromycin 500mg daily Kasie MCFADDEN
[2017-04-28] MEDS ORDERED: POTASSIUM CHLORIDE TABS 20 MEQ TABLET.ER (FP) PO ONE (14:00)
[2017-04-28] MEDS: AZITHROMYCIN IVPB 500 MG in DEXTROSE 5%-WATER - 250 ML IVPB SCH (15:37)
[2017-04-28] MEDS: CEFTRIAXONE 1 G/50 ML PREMIX 50 ML IVPB SCH (16:20)
[2017-04-28] MEDS: SENNOSIDES 8.6MG TABLET (FP) PO SCH (23:35)
[2017-04-29] MEDS: SODIUM CHLORIDE 0.45% 1,000 ML IV SCH (02:01)
[2017-04-29 08:01] LABS: BASOPHIL 0.4 % (0-2.0); EOSINOPHIL 0.9 % (0-4.5); MCHC 32.4 g/dl (32.0-36.0); MEAN CELL VOLUME 89.6 fl (80-96); MEAN PLT VOLUME 9.9 fl (7.5-11.1); NEUTROPHILS 78.9 % (42.8-82.8); PLATELET COUNT 109 K/MM3 (134-434); RDW 14.3 % (11.6-15.6)
[2017-04-29 08:27] LABS: ANION GAP 9 (8-16); CO2 28 mmol/L (21-32); CREATININE 0.6 mg/dL (0.55-1.02); GLUCOSE,RANDOM 84 mg/dL (74-106); SGOT/AST 11 U/L (15-37); SGPT/ALT 10 U/L (12-78)
[2017-04-29 09:03] LABS: ALK PHOS 43 U/L (45-117); BILIRUBIN,TOTAL 0.5 mg/dL (0.2-1.0); TOT PROT 5.4 g/dl (6.4-8.2)
[2017-04-29] MEDS ORDERED: PT OWN MED DRAWER 7, Y5N ONE (10:20)
[2017-04-29] MEDS: AZITHROMYCIN IVPB 500 MG in DEXTROSE 5%-WATER - 250 ML IVPB SCH (10:26)
[2017-04-29] MEDS: DIVALPROEX NA *ER* EXTEND REL 500 MG TABLET.SA (FP) PO SCH ×2 (10:27→22:29)
[2017-04-29] MEDS: BENZTROPINE MESYLATE 0.5 MG TABLET (FP) PO SCH ×2 (10:27→22:29)
[2017-04-29] MEDS: ENOXAPARIN NA (PORCINE) 40 MG/0.4 ML DISP.SYRIN SQ SCH (10:27)
[2017-04-29] MEDS: risperiDONE 1 MG TABLET (FP) PO SCH ×2 (10:28→22:29)
[2017-04-29] MEDS: CEFTRIAXONE 1 G/50 ML PREMIX 50 ML IVPB SCH (10:28)
[2017-04-29] MEDS: ARTIFICIAL TEARS (POLYVINYL ALCOHOL 1.4%) OPTH DROPS OU SCH ×2 (10:29→22:28)
--- NOTE | 2017-04-29 11:01 | PN ---
Physical Exam: SUBJECTIVE: Patient seen and examined OBJECTIVE: Vital Signs Period Temp Pulse Resp BP Sys/Seals Pulse Ox Last 24 Hr 98.6 F-102.6 F 59-88 17-20 102-136/53-65 96 GENERAL:drowsy and lethargic, A&O X1 . with HEAD: Normal with no signs of trauma. EYES: sclera anicteric, conjunctiva clear. EARS, NOSE, THROAT: dry mucous membranes. LUNGS: diminished breath sounds, No wheezes, and no crackles. No accessory muscle use. HEART: Regular rate and rhythm, normal S1 and S2 without murmur, rub or gallop. ABDOMEN: Soft, nontender, not distended, normoactive bowel sounds, big abdominal hernia 22cm LOWER EXTREMITIES: warm, well-perfused. No calf tenderness. No peripheral edema. NEUROLOGICAL: no focal deficit, lethargic and confused PSYCHIATRIC: in a good spirit today. SKIN: Warm, dry, no rashes or lesions noted. Laboratory Results - last 24 hr 04/29/17 04/29/17 07:00 07:00 WBC 11.0 H D RBC 3.93 Hgb 11.4 Hct 35.3 MCV 89.6 MCH 29.0 MCHC 32.4 RDW 14.3 Plt Count 109 L D MPV 9.9 Neutrophils % 78.9 Lymphocytes % 12.4 D Monocytes % 7.4 Eosinophils % 0.9 Basophils % 0.4 Sodium 143 Potassium 2.8 L* Chloride 106 Carbon Dioxide 28 Anion Gap 9 BUN 6 L Creatinine 0.6 Creat Clearance w eGFR > 60 Random Glucose 84 Calcium 8.0 L Total Bilirubin 0.5 AST 11 L D ALT 10 L D Alkaline Phosphatase 43 L Total Protein 5.4 L Albumin 2.0 L Vitamin B12 1796 H Serum Folate 24 H Active Medications Generic Name Dose Route Start Last Admin Trade Name Freq PRN Reason Stop Dose Admin Acetaminophen 650 mg 04/26/17 20:11 04/28/17 23:18 Tylenol - PO 650 mg Q6H PRN Administration PAIN/FEVER Artificial Tears 1 drop 04/26/17 22:00 04/29/17 10:29 Artificial Tears OU 1 drop BID [facility] Administration Benztropine Mesylate 0.5 mg 04/26/17 22:00 04/29/17 10:27 Cogentin - PO 0.5 mg BID [facility] Administration Divalproex Sodium 500 mg 04/26/17 22:00 04/29/17 10:27 Depakote *Er* - PO 500 mg BID [facility] Administration Enoxaparin Sodium 40 mg 04/27/17 10:00 04/29/17 10:27 Lovenox - SQ 40 mg DAILY [facility] Administration Sodium Chloride 1,000 mls @ 83 mls/hr 04/28/17 13:00 04/29/17 02:01 1/2 Normal Saline IV 83 mls/hr ASDIR [facility] Administration Azithromycin 500 mg/ Dextrose 250 mls @ 250 mls/hr 04/28/17 14:00 04/29/17 10: 26 IVPB 250 mls/hr DAILY [facility] Administration CEFTRIAXONE 1 G/50 ML PREMIX 50 mls @ 100 mls/hr 04/28/17 15:00 04/29/17 10:28 Ceftriaxone 1 Gm-D5w Bag IVPB 100 mls/hr DAILY [facility] Administration Risperidone 1 mg 04/26/17 22:00 04/29/17 10:28 Risperdal - PO 1 mg BID [facility] Administration Senna 2 tab 04/26/17 22:00 04/28/17 23:35 Senna - PO 2 tab HS [facility] Administration CBC, BMP 04/29/17 07:00 04/29/17 07:00 ASSESSMENT/PLAN: Patient is a 66 y.o. female with a PMH of Dementia, Schizophrenia, Seizure Disoder, Ventral Hernia, COPD, Pleural Effusion, Breast CA (s/p lumpectomy) who presents to our ED via EMS from [facility] for a c/o of fever (101), tachycardia and a single episode of non-bloody emesis this a.m. she was found to be septic and admitted for further evaluation and treatment . # sepsis most likely 2/2 pneumonia * febrile, tachycardia, * iv fluids * f/u blood cx no growth , urine cx no growth * Urine legionella ag negative * vanco, zosyn , cefepime given in ED * switch cefepime 1gm daily IVBP Q8 hr to ceftriaxone 1 gm daily IVBP , and Azithromycin 500 ivbp daily * DC metronidazole 500 Po TID * C.diff screening negative # Hypokalemia nurse contacted primary team to replete K Kar
--- NOTE | 2017-04-29 11:16 | PN ---
Progress Note (short form) - Note Progress Note: Pt seen/ examined chart reviewed feels ok. denies pain. comfortable poor historian. Vital Signs Temp 98.6 F 04/29/17 10:39 Pulse 71 04/29/17 10:39 Resp 17 04/29/17 10:39 BP 136/58 04/29/17 10:39 Pulse Ox 96 04/28/17 21:00 Intake & Output 04/28/17 04/28/17 04/29/17 11:59 23:59 11:59 Intake Total 700 1900 1650 Balance 700 1900 1650 Intake: IV 700 1250 1000 1/2 Normal Saline 1,682 053 6371 ml @ 100 mls/hr IV ASDIR [facility] Rx#:[id number] SL 100 1000 IVPB 450 Oral 200 650 Other: Voiding Method Incontinent Incontinent Diaper # Unmeasured Voids Void 2 2 Bowel Movement No # Bowel Movements 3 Active Medications Acetaminophen (Tylenol -) 650 mg PO Q6H PRN PRN Reason: PAIN/FEVER Last Admin: 04/28/17 23:18 Dose: 650 mg Artificial Tears (Artificial Tears) 1 drop OU BID [facility] Last Admin: 04/29/17 10:29 Dose: 1 drop Benztropine Mesylate (Cogentin -) 0.5 mg PO BID [facility] Last Admin: 04/29/17 10:27 Dose: 0.5 mg Divalproex Sodium (Depakote *Er* -) 500 mg PO BID [facility] Last Admin: 04/29/17 10:27 Dose: 500 mg Enoxaparin Sodium (Lovenox -) 40 mg SQ DAILY [facility] Last Admin: 04/29/17 10:27 Dose: 40 mg Sodium Chloride (1/2 Normal Saline) 1,000 mls @ 83 mls/hr IV ASDIR [facility] Last Admin: 04/29/17 02:01 Dose: 83 mls/hr Azithromycin 500 mg/ Dextrose 250 mls @ 250 mls/hr IVPB DAILY [facility] Last Admin: 04/29/17 10:26 Dose: 250 mls/hr CEFTRIAXONE 1 G/50 ML PREMIX (Ceftriaxone 1 Gm-D5w Bag) 50 mls @ 100 mls/hr IVPB DAILY [facility] Last Admin: 04/29/17 10:28 Dose: 100 mls/hr Risperidone (Risperdal -) 1 mg PO BID [facility] Last Admin: 04/29/17 10:28 Dose: 1 mg Senna (Senna -) 2 tab PO HS [facility] Last Admin: 04/28/17 23:35 Dose: 2 tab CBC, BMP 04/29/17 07:00 04/29/17 07:00 Microbiology 04/26/17 10:29 Blood Culture - Preliminary Blood - Peripheral Venous NO GROWTH OBTAINED AFTER 72 HOURS, INCUBATION TO CONTINUE FOR 2 DAYS. 04/26/17 10:29 Blood Culture - Preliminary Blood - Peripheral Venous NO GROWTH OBTAINED AFTER 72 HOURS, INCUBATION TO CONTINUE FOR 2 DAYS. 04/28/17 10:41 Influenza Types A,B Antigen (BRENDA) - Final Nasopharyngeal Swab - Final 04/27/17 12:42 Clostridium difficile Antigen (BRENDA) - Final Stool Clostridium difficile Toxin Assay - Final Physical Exam Constitutional: Yes: No Distress/ comfortable Cardiovascular: Yes: Regular Rate and Rhythm Respiratory: Yes: Diminished at bases Gastrointestinal: Yes: Normal Bowel Sounds, Soft, Hernia. No: Tenderness. Edema: No Psychiatric: Yes: Alert Problem List - Problems (1) Sepsis Code(s): A41.9 - SEPSIS, UNSPECIFIED ORGANISM (2) Fever Code(s): R50.9 - FEVER, UNSPECIFIED Qualifiers: Fever type: unspecified Qualified Code(s): R50.9 - Fever, unspecified; R50.9 - Fever, unspecified (3) Pneumonia Code(s): J18.9 - PNEUMONIA, UNSPECIFIED ORGANISM Assessment/Plan persistent fever continue abx per i/d f/u cultures fix electrolytes check mag level daily oob - chair will follow
[2017-04-29] MEDS ORDERED: POTASSIUM CHLORIDE TABS 20 MEQ TABLET.ER (FP) PO ONE ×2 (11:30→13:30)
[2017-04-29] MEDS: D5-1/2NS+20 MEQ KCL - 1,000 ML IV SCH (11:40)
--- NOTE | 2017-04-29 12:26 | PN ---
Progress Note (short form) - Note Progress Note: alert temps down looks comfortable Vital Signs Period Temp Pulse Resp BP Sys/Seals Pulse Ox Last 24 Hr 98.6 F-102.6 F 59-88 17-20 102-136/53-65 96 cor-rrr lungs decreased bs at bases abd soft, +hernia ext no edema CBC, BMP 04/29/17 07:00 04/29/17 07:00 Microbiology 04/26/17 10:29 Blood - Peripheral Venous Blood Culture - Preliminary NO GROWTH OBTAINED AFTER 72 HOURS, INCUBATION TO CONTINUE FOR 2 DAYS. 04/26/17 10:29 Blood - Peripheral Venous Blood Culture - Preliminary NO GROWTH OBTAINED AFTER 72 HOURS, INCUBATION TO CONTINUE FOR 2 DAYS. 04/28/17 10:41 Nasopharyngeal Swab Influenza Types A,B Antigen (BRENDA) - Final 04/28/17 10:41 Nasopharyngeal Swab - Final 04/27/17 12:42 Stool Clostridium difficile Antigen (BRENDA) - Final 04/27/17 12:42 Stool Clostridium difficile Toxin Assay - Final 04/26/17 10:20 Urine For Antigen Detection Legionella Antigen - Final 04/26/17 10:20 Urine For Antigen Detection Streptococcus pneumoniae Antigen (M - Final 04/26/17 10:29 Urine - Urine Clean Catch Urine Culture - Final NO GROWTH OBTAINED cdiff negative influenza negative a/p persistent fevers- now on rocphin /zith for cap- if persitent fevers would get ct scan of chest continue rocephin/zithromax Problem List - Problems (1) Fever Code(s): R50.9 - FEVER, UNSPECIFIED Qualifiers: Fever type: unspecified Qualified Code(s): R50.9 - Fever, unspecified; R50.9 - Fever, unspecified (2) Pneumonia Code(s): J18.9 - PNEUMONIA, UNSPECIFIED ORGANISM
[2017-04-29] MEDS: SENNOSIDES 8.6MG TABLET (FP) PO SCH (22:30)
[2017-04-30] MEDS: D5-1/2NS+20 MEQ KCL - 1,000 ML IV SCH ×2 (00:43→14:41)
[2017-04-30 07:58] LABS: MCH 29.9 pg (25.7-33.7); MCHC 33.9 g/dl (32.0-36.0); MEAN CELL VOLUME 88.4 fl (80-96); MEAN PLT VOLUME 9.8 fl (7.5-11.1); PLATELET COUNT 126 K/MM3 (134-434); RDW 14.7 % (11.6-15.6); WHITE BLOOD COUNT 7.1 K/mm3 (4.0-10.0)
[2017-04-30 08:08] LABS: ALK PHOS 52 U/L (45-117); ANION GAP 9 (8-16); BILIRUBIN,TOTAL 0.4 mg/dL (0.2-1.0); CALCIUM 8.4 mg/dL (8.5-10.1); CO2 26 mmol/L (21-32); CREATININE 0.6 mg/dL (0.55-1.02); GLUCOSE,RANDOM 111 mg/dL (74-106); MAGNESIUM 1.6 mg/dL (1.8-2.4); SGOT/AST 16 U/L (15-37); TOT PROT 5.6 g/dl (6.4-8.2)
[2017-04-30 08:09] LABS: SGPT/ALT 14 U/L (12-78)
--- NOTE | 2017-04-30 08:16 | PN ---
Progress Note, Physician Chief Complaint: ID comfortable in NAD Ceftriaxone and Azithromycin Day 4 antibiotics - Current Medication List Current Medications: Active Medications Acetaminophen (Tylenol -) 650 mg PO Q6H PRN PRN Reason: PAIN/FEVER Last Admin: 04/28/17 23:18 Dose: 650 mg Artificial Tears (Artificial Tears) 1 drop OU BID [facility] Last Admin: 04/29/17 22:28 Dose: 1 drop Benztropine Mesylate (Cogentin -) 0.5 mg PO BID [facility] Last Admin: 04/29/17 22:29 Dose: 0.5 mg Divalproex Sodium (Depakote *Er* -) 500 mg PO BID [facility] Last Admin: 04/29/17 22:29 Dose: 500 mg Enoxaparin Sodium (Lovenox -) 40 mg SQ DAILY [facility] Last Admin: 04/29/17 10:27 Dose: 40 mg Azithromycin 500 mg/ Dextrose 250 mls @ 250 mls/hr IVPB DAILY [facility] Last Admin: 04/29/17 10:26 Dose: 250 mls/hr CEFTRIAXONE 1 G/50 ML PREMIX (Ceftriaxone 1 Gm-D5w Bag) 50 mls @ 100 mls/hr IVPB DAILY [facility] Last Admin: 04/29/17 10:28 Dose: 100 mls/hr Potassium Chloride/Dextrose/Sod Cl (D5-1/2ns+20 Meq Kcl -) 1,000 mls @ 83 mls/ hr IV ASDIR [facility] Last Admin: 04/30/17 00:43 Dose: 83 mls/hr Risperidone (Risperdal -) 1 mg PO BID [facility] Last Admin: 04/29/17 22:29 Dose: 1 mg Senna (Senna -) 2 tab PO HS [facility] Last Admin: 04/29/17 22:30 Dose: 2 tab - Objective Vital Signs: Vital Signs Temperature 98.5 F 04/30/17 05:59 Pulse Rate 58 L 04/30/17 05:59 Respiratory Rate 20 04/30/17 05:59 Blood Pressure 177/75 04/30/17 05:59 O2 Sat by Pulse Oximetry (%) 95 04/29/17 20:55 Constitutional: Yes: No Distress HENT: Yes: WNL, Atraumatic Neck: Yes: WNL, Supple Cardiovascular: Yes: Regular Rate and Rhythm, S1, S2 Respiratory: Yes: WNL, Regular, CTA Bilaterally Gastrointestinal: Yes: WNL, Normal Bowel Sounds, Soft. No: Tenderness, Tenderness, Epigastrium Extremities: No: Cold, Cool, Cyanosis Peripheral Pulses WNL: No Labs: INR, PTT INR 1.26 (0.82-1.09) H 04/26/17 10:00 Assessment/Plan Microbiology 04/28/17 10:41 Nasopharyngeal Swab Influenza Types A,B Antigen (BRENDA) - Final 04/28/17 10:41 Nasopharyngeal Swab - Final 04/27/17 12:42 Stool Clostridium difficile Antigen (BRENDA) - Final 04/27/17 12:42 Stool Clostridium difficile Toxin Assay - Final 04/26/17 10:29 Urine - Urine Clean Catch Urine Culture - Final NO GROWTH OBTAINED 04/26/17 10:20 Urine For Antigen Detection Legionella Antigen - Final 04/26/17 10:20 Urine For Antigen Detection Streptococcus pneumoniae Antigen (M - Final 04/26/17 10:29 Blood - Peripheral Venous Blood Culture - Preliminary NO GROWTH OBTAINED AFTER 72 HOURS, INCUBATION TO CONTINUE FOR 2 DAYS. 04/26/17 10:29 Blood - Peripheral Venous Blood Culture - Preliminary NO GROWTH OBTAINED AFTER 72 HOURS, INCUBATION TO CONTINUE FOR 2 DAYS. Laboratory Tests 04/29/17 04/30/17 07:00 06:00 WBC Pending Hgb Pending Plt Count Pending Sodium 143 Potassium 2.8 L* BUN 6 L Creatinine 0.6 Assessment Fever ? PNA resolved Plan Another day of IV antibiotic then oral ? levofloxacin Kasie MCFADDEN
[2017-04-30] MEDS ORDERED: PT OWN MED DRAWER 7, Y5N ONE ×2 (10:31→20:23)
[2017-04-30] MEDS: risperiDONE 1 MG TABLET (FP) PO SCH ×2 (10:51→22:49)
[2017-04-30] MEDS: CEFTRIAXONE 1 G/50 ML PREMIX 50 ML IVPB SCH (10:51)
[2017-04-30] MEDS: ENOXAPARIN NA (PORCINE) 40 MG/0.4 ML DISP.SYRIN SQ SCH (10:51)
[2017-04-30] MEDS: AZITHROMYCIN IVPB 500 MG in DEXTROSE 5%-WATER - 250 ML IVPB SCH (10:51)
[2017-04-30] MEDS: DIVALPROEX NA *ER* EXTEND REL 500 MG TABLET.SA (FP) PO SCH ×2 (10:52→22:48)
[2017-04-30] MEDS: ARTIFICIAL TEARS (POLYVINYL ALCOHOL 1.4%) OPTH DROPS OU SCH ×2 (10:52→22:49)
[2017-04-30] MEDS: BENZTROPINE MESYLATE 0.5 MG TABLET (FP) PO SCH ×2 (10:52→22:49)
--- NOTE | 2017-04-30 11:31 | PN ---
Progress Note, Physician Chief Complaint: no diarrhea no coughing afebrile awake and alert - Current Medication List Current Medications: Active Medications Acetaminophen (Tylenol -) 650 mg PO Q6H PRN PRN Reason: PAIN/FEVER Last Admin: 04/28/17 23:18 Dose: 650 mg Artificial Tears (Artificial Tears) 1 drop OU BID [facility] Last Admin: 04/30/17 10:52 Dose: 1 drop Benztropine Mesylate (Cogentin -) 0.5 mg PO BID [facility] Last Admin: 04/30/17 10:52 Dose: 0.5 mg Divalproex Sodium (Depakote *Er* -) 500 mg PO BID [facility] Last Admin: 04/30/17 10:52 Dose: 500 mg Enoxaparin Sodium (Lovenox -) 40 mg SQ DAILY [facility] Last Admin: 04/30/17 10:51 Dose: 40 mg Azithromycin 500 mg/ Dextrose 250 mls @ 250 mls/hr IVPB DAILY [facility] Last Admin: 04/30/17 10:51 Dose: 250 mls/hr CEFTRIAXONE 1 G/50 ML PREMIX (Ceftriaxone 1 Gm-D5w Bag) 50 mls @ 100 mls/hr IVPB DAILY [facility] Last Admin: 04/30/17 10:51 Dose: 100 mls/hr Magnesium Sulfate (Magnesium Sulfate) 2 gm IVPB ONCE ONE Stop: 04/30/17 11:04 Risperidone (Risperdal -) 1 mg PO BID [facility] Last Admin: 04/30/17 10:51 Dose: 1 mg Senna (Senna -) 2 tab PO HS [facility] Last Admin: 04/29/17 22:30 Dose: 2 tab - Objective Vital Signs: Vital Signs Temperature 98.5 F 04/30/17 05:59 Pulse Rate 58 L 04/30/17 05:59 Respiratory Rate 20 04/30/17 05:59 Blood Pressure 177/75 04/30/17 05:59 O2 Sat by Pulse Oximetry (%) 95 04/29/17 20:55 Constitutional: Yes: No Distress Cardiovascular: Yes: Regular Rate and Rhythm Respiratory: Yes: CTA Bilaterally Gastrointestinal: Yes: Normal Bowel Sounds, Soft, Hernia. No: Tenderness Edema: No Labs: CBC, BMP 04/30/17 06:00 04/30/17 06:00 INR, PTT INR 1.26 (0.82-1.09) H 04/26/17 10:00 Problem List - Problems (1) Sepsis Code(s): A41.9 - SEPSIS, UNSPECIFIED ORGANISM (2) Fever Code(s): R50.9 - FEVER, UNSPECIFIED Qualifiers: Fever type: unspecified Qualified Code(s): R50.9 - Fever, unspecified; R50.9 - Fever, unspecified (3) Pneumonia Code(s): J18.9 - PNEUMONIA, UNSPECIFIED ORGANISM Assessment/Plan PLAN IV antibiotics ID eval-- noted Cdiff- negative influenza screen negative urine antigens negative continue with meds DVT prophylaxis-- Lovenox sc iv fluids replace Magnesium
[2017-04-30] MEDS ORDERED: MAGNESIUM SULF 50% (8.12 MEQ/2 ML-1 GM VIAL) IVPB ONE (12:00)
[2017-04-30 12:15] LABS: PLATELET ESTIMATE DECREASED (NORMAL); TOTAL CELLS COUNTED 100
[2017-04-30 12:16] LABS: METAMYELOCYTE 1 % (0-2)
[2017-04-30] MEDS: SENNOSIDES 8.6MG TABLET (FP) PO SCH (22:49)
[2017-05-01] MEDS: D5-1/2NS+20 MEQ KCL - 1,000 ML IV SCH ×2 (06:42→21:15)
[2017-05-01] MEDS: ACETAMINOPHEN 325 MG TABLET (FP) PO PRN ×2 (06:42→21:16)
[2017-05-01] MEDS ORDERED: PT OWN MED DRAWER 7, Y5N ONE ×2 (09:00→21:05)
[2017-05-01] MEDS: risperiDONE 1 MG TABLET (FP) PO SCH ×2 (09:26→21:17)
[2017-05-01] MEDS: ENOXAPARIN NA (PORCINE) 40 MG/0.4 ML DISP.SYRIN SQ SCH (09:26)
[2017-05-01] MEDS: ARTIFICIAL TEARS (POLYVINYL ALCOHOL 1.4%) OPTH DROPS OU SCH ×2 (09:26→21:16)
[2017-05-01] MEDS: BENZTROPINE MESYLATE 0.5 MG TABLET (FP) PO SCH ×2 (09:27→21:17)
[2017-05-01] MEDS: DIVALPROEX NA *ER* EXTEND REL 500 MG TABLET.SA (FP) PO SCH ×2 (09:27→21:17)
[2017-05-01] MEDS: CEFTRIAXONE 1 G/50 ML PREMIX 50 ML IVPB SCH (09:27)
[2017-05-01] MEDS: AZITHROMYCIN IVPB 500 MG in DEXTROSE 5%-WATER - 250 ML IVPB SCH (09:28)
--- NOTE | 2017-05-01 10:12 | PN ---
Progress Note, Physician Chief Complaint: no diarrhea no coughing afebrile awake and alert - Current Medication List Current Medications: Active Medications Acetaminophen (Tylenol -) 650 mg PO Q6H PRN PRN Reason: PAIN/FEVER Last Admin: 05/01/17 06:42 Dose: 650 mg Artificial Tears (Artificial Tears) 1 drop OU BID [facility] Last Admin: 05/01/17 09:26 Dose: 1 drop Benztropine Mesylate (Cogentin -) 0.5 mg PO BID [facility] Last Admin: 05/01/17 09:27 Dose: 0.5 mg Divalproex Sodium (Depakote *Er* -) 500 mg PO BID [facility] Last Admin: 05/01/17 09:27 Dose: 500 mg Enoxaparin Sodium (Lovenox -) 40 mg SQ DAILY [facility] Last Admin: 05/01/17 09:26 Dose: 40 mg Azithromycin 500 mg/ Dextrose 250 mls @ 250 mls/hr IVPB DAILY [facility] Last Admin: 05/01/17 09:28 Dose: 250 mls/hr CEFTRIAXONE 1 G/50 ML PREMIX (Ceftriaxone 1 Gm-D5w Bag) 50 mls @ 100 mls/hr IVPB DAILY [facility] Last Admin: 05/01/17 09:27 Dose: 100 mls/hr Potassium Chloride/Dextrose/Sod Cl (D5-1/2ns+20 Meq Kcl -) 1,000 mls @ 60 mls/ hr IV ASDIR [facility] Last Admin: 05/01/17 06:42 Dose: 60 mls/hr Risperidone (Risperdal -) 1 mg PO BID [facility] Last Admin: 05/01/17 09:26 Dose: 1 mg Senna (Senna -) 2 tab PO HS [facility] Last Admin: 04/30/17 22:49 Dose: 2 tab - Objective Vital Signs: Vital Signs Temperature 100.5 F H 05/01/17 05:59 Pulse Rate 65 05/01/17 05:59 Respiratory Rate 20 05/01/17 05:59 Blood Pressure 138/76 05/01/17 05:59 O2 Sat by Pulse Oximetry (%) 95 04/30/17 21:00 Constitutional: Yes: No Distress Cardiovascular: Yes: Regular Rate and Rhythm Respiratory: Yes: CTA Bilaterally Gastrointestinal: Yes: Normal Bowel Sounds, Soft. No: Tenderness Edema: No Labs: CBC, BMP 04/30/17 06:00 04/30/17 06:00 INR, PTT INR 1.26 (0.82-1.09) H 04/26/17 10:00 Problem List - Problems (1) Sepsis Code(s): A41.9 - SEPSIS, UNSPECIFIED ORGANISM (2) Fever Code(s): R50.9 - FEVER, UNSPECIFIED Qualifiers: Fever type: unspecified Qualified Code(s): R50.9 - Fever, unspecified; R50.9 - Fever, unspecified (3) Pneumonia Code(s): J18.9 - PNEUMONIA, UNSPECIFIED ORGANISM Assessment/Plan PLAN IV antibiotics ID eval-- noted Cdiff- negative influenza screen negative urine antigens negative continue with meds DVT prophylaxis-- Lovenox sc dc plan for tomorrow if afebrile
[2017-05-01] MEDS: SENNOSIDES 8.6MG TABLET (FP) PO SCH (21:17)
--- NOTE | 2017-05-02 08:54 | PN ---
Progress Note (short form) - Note Progress Note: Fever of 100.4 last night. patient otherwise comfortable All follow-ups noted Chart reviewed Vital Signs Temp 98.3 F 05/02/17 05:31 Pulse 46 L 05/02/17 05:31 Resp 18 05/02/17 05:31 BP 134/75 05/02/17 05:31 Pulse Ox 95 05/01/17 09:00 Intake & Output 05/01/17 05/01/17 05/02/17 11:59 23:59 11:59 Intake Total 600 Balance 600 Intake: IV 600 D5-1/2Ns+20 Meq KCl - 1, 600 000 ml @ 60 mls/hr IV ASDIR [facility] Rx#:[id number] Other: Voiding Method Incontinent # Unmeasured Voids Void 1 Bowel Movement Yes Active Medications Acetaminophen (Tylenol -) 650 mg PO Q6H PRN PRN Reason: PAIN/FEVER Last Admin: 05/01/17 21:16 Dose: 650 mg Artificial Tears (Artificial Tears) 1 drop OU BID [facility] Last Admin: 05/01/17 21:16 Dose: 1 drop Benztropine Mesylate (Cogentin -) 0.5 mg PO BID [facility] Last Admin: 05/01/17 21:17 Dose: 0.5 mg Divalproex Sodium (Depakote *Er* -) 500 mg PO BID [facility] Last Admin: 05/01/17 21:17 Dose: 500 mg Enoxaparin Sodium (Lovenox -) 40 mg SQ DAILY [facility] Last Admin: 05/01/17 09:26 Dose: 40 mg Potassium Chloride/Dextrose/Sod Cl (D5-1/2ns+20 Meq Kcl -) 1,000 mls @ 60 mls/ hr IV ASDIR [facility] Last Admin: 05/01/17 21:15 Dose: 60 mls/hr Risperidone (Risperdal -) 1 mg PO BID [facility] Last Admin: 05/01/17 21:17 Dose: 1 mg Senna (Senna -) 2 tab PO HS [facility] Last Admin: 05/01/17 21:17 Dose: 2 tab CBC, BMP 04/30/17 06:00 04/30/17 06:00 Microbiology 04/26/17 10:29 Blood Culture - Final Blood - Peripheral Venous NO GROWTH AFTER 5 DAYS INCUBATION 04/26/17 10:29 Blood Culture - Final Blood - Peripheral Venous NO GROWTH AFTER 5 DAYS INCUBATION f/u labs-- ordered ct chest- ordered - Objective Constitutional: Yes: No Distress/comfortable Cardiovascular: Yes: Regular Rate and Rhythm Respiratory: Yes: CTA Bilaterally Gastrointestinal: Yes: Normal Bowel Sounds, Soft. No: Tenderness. large ventral hernia present Edema: No Problem List - Problems (1) Sepsis Code(s): A41.9 - SEPSIS, UNSPECIFIED ORGANISM (2) Fever Code(s): R50.9 - FEVER, UNSPECIFIED Qualifiers: Fever type: unspecified Qualified Code(s): R50.9 - Fever, unspecified; R50.9 - Fever, unspecified (3) Pneumonia Code(s): J18.9 - PNEUMONIA, UNSPECIFIED ORGANISM Assessment/Plan low-grade temperature continue IV antibiotics Will order labs today Will order CT chest also Will not discharge today If remains afebrile and blood test and CT chest unremarkable--then we will consider discharge tomorrow Will follow
[2017-05-02] MEDS ORDERED: PT OWN MED DRAWER 7, Y5N ONE ×2 (09:01→20:36)
[2017-05-02] MEDS: risperiDONE 1 MG TABLET (FP) PO SCH ×2 (09:13→21:05)
[2017-05-02] MEDS: DIVALPROEX NA *ER* EXTEND REL 500 MG TABLET.SA (FP) PO SCH ×2 (09:13→21:05)
[2017-05-02] MEDS: BENZTROPINE MESYLATE 0.5 MG TABLET (FP) PO SCH ×2 (09:13→21:05)
[2017-05-02] MEDS: ARTIFICIAL TEARS (POLYVINYL ALCOHOL 1.4%) OPTH DROPS OU SCH ×2 (09:13→21:06)
[2017-05-02] MEDS: ENOXAPARIN NA (PORCINE) 40 MG/0.4 ML DISP.SYRIN SQ SCH (09:13)
[2017-05-02 10:43] LABS: BASOPHIL 1.1 % (0-2.0); EOSINOPHIL 0.8 % (0-4.5); MCH 29.5 pg (25.7-33.7); MEAN CELL VOLUME 89.3 fl (80-96); MEAN PLT VOLUME 9.2 fl (7.5-11.1); NEUTROPHILS 57.4 % (42.8-82.8); PLATELET COUNT 158 K/MM3 (134-434); WHITE BLOOD COUNT 6.5 K/mm3 (4.0-10.0)
[2017-05-02 11:20] LABS: ANION GAP 8 (8-16); CALCIUM 8.6 mg/dL (8.5-10.1); CO2 29 mmol/L (21-32); CREATININE 0.5 mg/dL (0.55-1.02); GLUCOSE,RANDOM 113 mg/dL (74-106); SGOT/AST 15 U/L (15-37); SGPT/ALT 17 U/L (12-78)
[2017-05-02 11:21] LABS: ALK PHOS 52 U/L (45-117); BILIRUBIN,TOTAL 0.3 mg/dL (0.2-1.0); TOT PROT 5.5 g/dl (6.4-8.2)
[2017-05-02] MEDS: D5-1/2NS+20 MEQ KCL - 1,000 ML IV SCH (15:59)
[2017-05-02] MEDS: SENNOSIDES 8.6MG TABLET (FP) PO SCH (21:06)
[2017-05-03] MEDS: D5-1/2NS+20 MEQ KCL - 1,000 ML IV SCH (10:07)
[2017-05-03] MEDS ORDERED: diazePAM 5 MG TABLET PO ONE (11:00)
[2017-05-03] MEDS: ENOXAPARIN NA (PORCINE) 40 MG/0.4 ML DISP.SYRIN SQ SCH (11:01)
[2017-05-03] MEDS: ARTIFICIAL TEARS (POLYVINYL ALCOHOL 1.4%) OPTH DROPS OU SCH ×2 (11:01→22:09)
[2017-05-03] MEDS: risperiDONE 1 MG TABLET (FP) PO SCH ×2 (11:02→22:09)
[2017-05-03] MEDS: BENZTROPINE MESYLATE 0.5 MG TABLET (FP) PO SCH ×2 (11:02→22:10)
[2017-05-03] MEDS: DIVALPROEX NA *ER* EXTEND REL 500 MG TABLET.SA (FP) PO SCH ×2 (11:02→22:09)
--- NOTE | 2017-05-03 11:45 | PN ---
Progress Note (short form) - Note Progress Note: pt came back from CT chest no distress Vitals noted S1 S2 RRR lungs decreased Abd- soft, NT No edema A/P Pneumonia -- on antibiotics per ID Problem List - Problems (1) Pneumonia Code(s): J18.9 - PNEUMONIA, UNSPECIFIED ORGANISM (2) Fever Code(s): R50.9 - FEVER, UNSPECIFIED Qualifiers: Fever type: unspecified Qualified Code(s): R50.9 - Fever, unspecified (3) Sepsis Code(s): A41.9 - SEPSIS, UNSPECIFIED ORGANISM
[2017-05-03] MEDS: SENNOSIDES 8.6MG TABLET (FP) PO SCH (22:09)
[2017-05-04] MEDS ORDERED: AZITHROMYCIN IVPB 500 MG in DEXTROSE 5%-WATER - 250 ML IVPB ONE (00:54)
[2017-05-04] MEDS ORDERED: CEFTRIAXONE 1 GM in DEXTROSE 5%-WATER - 50 ML IVPB ONE (00:54)
--- NOTE | 2017-05-04 00:57 | HOSP ---
Subjective - Review of Symptoms Events since last encounter: nurse called to report CT results Physical Examination Vital Signs: Vital Signs Temperature 98.7 F 05/03/17 20:00 Pulse Rate 104 H 05/03/17 20:00 Respiratory Rate 18 05/03/17 20:00 Blood Pressure 130/56 05/03/17 20:00 O2 Sat by Pulse Oximetry (%) 94 L 05/03/17 20:00 Labs: CBC, BMP 05/02/17 10:16 05/02/17 10:16 CT scan of the chest without intravenous contrast Coronal and sagittal reconstruction images were obtained. Compared to prior CT scan of the abdomen pelvis dated 06/29/2016 The heart is within normal limits in size. Calcification of the coronary arteries are present. No gross enlarged mediastinal or hilar lymph nodes are identified on this noncontrast examination. There are patchy infiltrates in the right upper lobe and lingular segment of the left upper lobe. Bilateral lower lobe consolidation with air bronchogram and small bilateral pleural effusion are present. In included portion of the abdomen, previously visualized large ventral hernia containing bowel loops and mesentery was partially included on this exam. Visualized osseous structures appear intact IMPRESSION: Bilateral lower lobe consolidation with air bronchogram and small bilateral pleural effusion consistent with pneumonia. Patchy infiltrates in the right upper lobe with subsegmental atelectasis/ pneumonia in lingular segment of the left upper lobe. Reported By: Kwan Ross MD 05/03/17 [id number] Hospitalist Encounter Assessment: pneumonia - Will restart ceftriaxone and azithromycin x 1 tonight, PCP to follow in AM.
[2017-05-04] MEDS ORDERED: PT OWN MED DRAWER 7, Y5N ONE ×2 (09:45→23:19)
[2017-05-04] MEDS: D5-1/2NS+20 MEQ KCL - 1,000 ML IV SCH ×2 (09:47→11:43)
[2017-05-04] MEDS: ENOXAPARIN NA (PORCINE) 40 MG/0.4 ML DISP.SYRIN SQ SCH (09:47)
[2017-05-04] MEDS: ARTIFICIAL TEARS (POLYVINYL ALCOHOL 1.4%) OPTH DROPS OU SCH ×2 (09:48→23:22)
[2017-05-04] MEDS: risperiDONE 1 MG TABLET (FP) PO SCH ×2 (09:48→23:22)
[2017-05-04] MEDS: BENZTROPINE MESYLATE 0.5 MG TABLET (FP) PO SCH ×2 (09:48→23:22)
[2017-05-04] MEDS: DIVALPROEX NA *ER* EXTEND REL 500 MG TABLET.SA (FP) PO SCH ×2 (09:48→23:23)
[2017-05-04] MEDS ORDERED: ALBUTEROL SO4 2.5/IPRATROPIUM 0.5 INH SOL 3 ML VIAL.NEB. NEB PRN (11:31)
[2017-05-04] MEDS: LEVOFLOXACIN 500 MG IVPB 500 MG/100 ML BAG IVPB SCH (11:43)
--- NOTE | 2017-05-04 11:51 | PN ---
Progress Note, Physician Chief Complaint: no diarrhea no coughing afebrile awake and alert - Current Medication List Current Medications: Active Medications Acetaminophen (Tylenol -) 650 mg PO Q6H PRN PRN Reason: PAIN/FEVER Last Admin: 05/01/17 21:16 Dose: 650 mg Albuterol/Ipratropium (Duoneb -) 1 amp NEB Q6H PRN PRN Reason: SHORTNESS OF BREATH Artificial Tears (Artificial Tears) 1 drop OU BID [facility] Last Admin: 05/04/17 09:48 Dose: 1 drop Benztropine Mesylate (Cogentin -) 0.5 mg PO BID [facility] Last Admin: 05/04/17 09:48 Dose: 0.5 mg Divalproex Sodium (Depakote *Er* -) 500 mg PO BID [facility] Last Admin: 05/04/17 09:48 Dose: 500 mg Potassium Chloride/Dextrose/Sod Cl (D5-1/2ns+20 Meq Kcl -) 1,000 mls @ 60 mls/ hr IV ASDIR [facility] Last Admin: 05/04/17 11:43 Dose: Not Given Levofloxacin (Levaquin 500 Mg Premixed Ivpb -) 500 mg in 100 mls @ 100 mls/hr IVPB DAILY [facility] Last Admin: 05/04/17 11:43 Dose: 100 mls/hr Risperidone (Risperdal -) 1 mg PO BID [facility] Last Admin: 05/04/17 09:48 Dose: 1 mg Senna (Senna -) 2 tab PO HS [facility] Last Admin: 05/03/17 22:09 Dose: 2 tab - Objective Vital Signs: Vital Signs Temperature 98.7 F 05/03/17 20:00 Pulse Rate 104 H 05/03/17 20:00 Respiratory Rate 18 05/03/17 20:00 Blood Pressure 130/56 05/03/17 20:00 O2 Sat by Pulse Oximetry (%) 94 L 05/03/17 20:00 Constitutional: Yes: No Distress, Calm Cardiovascular: Yes: Regular Rate and Rhythm Respiratory: Yes: Diminished Gastrointestinal: Yes: Normal Bowel Sounds, Soft, Hernia. No: Distention, Tenderness Edema: No Labs: CBC, BMP 05/02/17 10:16 05/02/17 10:16 INR, PTT INR 1.26 (0.82-1.09) H 04/26/17 10:00 Problem List - Problems (1) Pneumonia Code(s): J18.9 - PNEUMONIA, UNSPECIFIED ORGANISM (2) Fever Code(s): R50.9 - FEVER, UNSPECIFIED Qualifiers: Fever type: unspecified Qualified Code(s): R50.9 - Fever, unspecified (3) Sepsis Code(s): A41.9 - SEPSIS, UNSPECIFIED ORGANISM Assessment/Plan PLAN IV antibiotics restarted CT chest noted ID follow up Cdiff- negative influenza screen negative urine antigens negative continue with meds DVT prophylaxis-- Lovenox sc
--- NOTE | 2017-05-04 13:26 | PN ---
Progress Note (short form) - Note Progress Note: alert afebrile complains of blurry vision for last 4 days Vital Signs Period Temp Pulse Resp BP Sys/Seals Pulse Ox Last 24 Hr 98.3 F-99.1 F 60-104 18-18 115-130/56-75 94-95 cor-rrr lungs decreased bs at bases abd soft,nt ext no edema ct scan noted CBC, BMP 05/02/17 10:16 05/02/17 10:16 cdiff negative influenza negative Microbiology 04/26/17 10:29 Blood - Peripheral Venous Blood Culture - Final NO GROWTH AFTER 5 DAYS INCUBATION 04/26/17 10:29 Blood - Peripheral Venous Blood Culture - Final NO GROWTH AFTER 5 DAYS INCUBATION 04/28/17 10:41 Nasopharyngeal Swab Influenza Types A,B Antigen (BRENDA) - Final 04/28/17 10:41 Nasopharyngeal Swab - Final 04/27/17 12:42 Stool Clostridium difficile Antigen (BRENDA) - Final 04/27/17 12:42 Stool Clostridium difficile Toxin Assay - Final 04/26/17 10:20 Urine For Antigen Detection Legionella Antigen - Final 04/26/17 10:20 Urine For Antigen Detection Streptococcus pneumoniae Antigen (M - Final 04/26/17 10:29 Urine - Urine Clean Catch Urine Culture - Final NO GROWTH OBTAINED a/p pneumonia resolving - day #[address] shows resolving pneumonia- would complete 10 days antibiotics totall- agree with switch to levaquin for another 72 hours blurry vision- ?optho exam please call back if needed Problem List - Problems (1) Pneumonia Code(s): J18.9 - PNEUMONIA, UNSPECIFIED ORGANISM (2) Fever Code(s): R50.9 - FEVER, UNSPECIFIED Qualifiers: Fever type: unspecified Qualified Code(s): R50.9 - Fever, unspecified
[2017-05-04] MEDS: SENNOSIDES 8.6MG TABLET (FP) PO SCH (23:23)
[2017-05-05] MEDS: D5-1/2NS+20 MEQ KCL - 1,000 ML IV SCH (02:56)
[2017-05-05] MEDS ORDERED: PT OWN MED DRAWER 7, Y5N ONE (10:18)
[2017-05-05 10:47] VITALS: BP 107/59; PULSE 94; TEMP 98.4
[2017-05-05] MEDS: LEVOFLOXACIN 500 MG IVPB 500 MG/100 ML BAG IVPB SCH (10:47)
[2017-05-05] MEDS: BENZTROPINE MESYLATE 0.5 MG TABLET (FP) PO SCH (10:48)
[2017-05-05] MEDS: risperiDONE 1 MG TABLET (FP) PO SCH (10:48)
[2017-05-05] MEDS: ARTIFICIAL TEARS (POLYVINYL ALCOHOL 1.4%) OPTH DROPS OU SCH (10:49)
[2017-05-05] MEDS: DIVALPROEX NA *ER* EXTEND REL 500 MG TABLET.SA (FP) PO SCH (10:49)
--- NOTE | 2017-05-05 11:54 | DS ---
Physical Examination Vital Signs: Vital Signs Temperature 98.4 F 05/05/17 09:10 Pulse Rate 94 H 05/05/17 09:10 Respiratory Rate 18 05/05/17 09:10 Blood Pressure 107/59 05/05/17 09:10 O2 Sat by Pulse Oximetry (%) 95 05/04/17 20:06 Constitutional: Yes: No Distress, Calm Cardiovascular: Yes: Regular Rate and Rhythm Respiratory: Yes: Diminished. No: Rales, Rhonchi Gastrointestinal: Yes: Normal Bowel Sounds, Soft, Hernia. No: Distention, Tenderness Edema: No Labs: CBC, BMP 05/02/17 10:16 05/02/17 10:16 Discharge Summary Reason For Visit: SEPSIS Current Active Problems Sepsis (Acute) Hospital Course: Admitted for B/L pneumonia Seen by ID Health care acquired pneumonia- was on iv antibiotics and nebs Pt feeling better Had CT chest done which showed B.L consolidations. Pt feels well stable for dc to [facility] Condition: Fair - Instructions Disposition: HALF-WAY FACILITY - Home Medications Comprehensive Discharge Medication List: Ambulatory Orders Acetaminophen [Tylenol] 650 mg PO QID 12/03/16 Benztropine Mesylate [Cogentin -] 0.5 mg PO BID 12/03/16 Divalproex *ER* [Depakote *ER* -] 500 mg PO BID 12/03/16 Hypromellose 0.5% Opth Soln [Artificial Tears] 1 drop BID 12/03/16 Ibuprofen [Motrin -] 200 mg PO TID 12/03/16 Magnesium Hydroxide [Milk of Magnesia] 30 ml PO DAILY PRN 12/03/16 Risperidone Microspheres [Risperdal Consta] 50 mg IM DAILY 12/03/16 Risperidone [Risperdal] 1 mg PO BID 12/03/16 Sennosides [Senna] 2 tab PO HS 12/03/16 Sodium Phosphate/Na Biphos [Fleet Adult Rectal Enema -] 118 ml RC PRN 04/26/17
== END 2017-05-05 14:04 | DRG 871 ==
LOC: JER 09:23 → JERBED 12:11 → J7W 17:15
PROVIDERS: ADMIT Internal Medicine; ATTEND Internal Medicine
DX: A41.9 Sepsis, unspecified organism (principal); J18.9 Pneumonia, unspecified organism; J98.11 Atelectasis; E87.2 Acidosis; G40.89 Other seizures; E87.6 Hypokalemia; C50.919 Malignant neoplasm of unspecified site of unspecified female breast; K43.9 Ventral hernia without obstruction or gangrene; J44.9 Chronic obstructive pulmonary disease, unspecified; Z99.81 Dependence on supplemental oxygen; F03.90 Unspecified dementia, unspecified severity, without behavioral disturbance, psychotic disturbance, mood disturbance, and anxiety; F20.9 Schizophrenia, unspecified; F31.9 Bipolar disorder, unspecified
CPT/HCPCS: 36415; 71010-TC; 71250-TC; 80053; 81003; 82550; 82607; 82746; 82803; 83605; 83735; 84484; 85025; 85610; 85730; 86850; 86900; 86901; 87040; 87086; 87324; 87449; 87804; 87899; 93005; 93010; 99285-25; J2794